=== PATIENT | female | born 1940 | race Caucasian/White ===

== ENCOUNTER → 2017-10-29 13:12 | Outpatient (CLI) | payer OTHER, SELFPAY ==
--- NOTE | 2017-10-29 14:01 | DI.CT.S_ITS ---
PROCEDURE: CT UE LT WO CON INDICATIONS: PRIMARY OSTEOARTHRITIS LEFT SHOULDER TECHNIQUE: Noncontrast 1-1.5 mm thick sections acquired from the acromioclavicular joint to the inferior scapula, with coronal and sagittal reformatting. COMPARISON: [facility], CR, XR SHOULDER 2+ VIEWS LEFT, 03/15/2017, 11:17. FINDINGS: Image quality: Diagnostic. Bones: There is no acute fracture, dislocation, or suspicious osseous lesion involving the osseous structures of the left shoulder. However, there are severe degenerative changes of the left glenohumeral joint with prominent joint space narrowing, bony remodeling, degenerative cystic change, developing marginal osteophytes, and subchondral sclerosis. There are mild to moderate degenerative changes of the left acromioclavicular joint. The remainder of the imaged osseous structures of the left chest are otherwise unremarkable and age-appropriate Soft tissues: Evaluation of the soft tissues of the left shoulder is difficult without intra-articular contrast. There appears to be a prominent left glenohumeral joint effusion. No significant muscle atrophy is appreciated involving the rotator cuff muscles. There is no significant axillary lymphadenopathy. The imaged soft tissues of the chest are age-appropriate. The heart may be mildly enlarged. There are areas of atelectasis within the posterior lungs. No obvious masses are appreciated. IMPRESSION: 1. Severe degenerative changes of the left glenohumeral joint with an associated joint effusion. 2. Mild to moderate degenerative changes of the left acromioclavicular joint. 3. No significant atrophy of the rotator cuff muscles. Dictated by: Wilber Gambino M.D. on 10/29/2017 at 16:22 Approved by: Wilber Gambino M.D. on 10/29/2017 at 16:26
== END ==
PROVIDERS: PCP Nurse Practitioner; Visit Provider Orthopaedic Surgery
DX: M19.012 Primary osteoarthritis, left shoulder (principal); M25.412 Effusion, left shoulder
CPT/HCPCS: 73200

== ENCOUNTER → 2017-11-18 12:32 | Outpatient (CLI) | payer OTHER, SELFPAY ==
[2017-11-18 14:07] LABS: Add Manual Diff / Slide Review NO; Basophils Percent Auto 0.6 % (0-2); Eosinophils Percent Auto 1.2 % (2-4); Hematocrit 42.1 % (36-46); Lymphocytes Percent Auto 23.9 % (25-40); Mean Corpuscular HGB Conc 33.3 % (30-36); Mean Corpuscular Hemoglobin 30.9 PG (26-34); Mean Corpuscular Volume 92.6 fL (80-100); Monocytes Percent Auto 9.2 % (3-14); Neutrophils Absolute Auto 4100 /uL (3000-5900); Neutrophils Percent Auto 65.1 % (50-75); Platelet Count 236 X10^3/uL (150-400); Red Blood Cell Count 4.55 X10^6/uL (4.0-5.2); Red Cell Distribution Width 13.5 % (11.6-14.8); White Blood Cell Count 6.2 X10^3/uL (4.5-11.0)
[2017-11-18 14:09] LABS: Hemoglobin A1C% w Est Avg Glu 5.2 % (4.0-6.0)
[2017-11-18 14:29] LABS: BUN Creatinine Ratio 22.9 (6-22); Blood Urea Nitrogen 16 mg/dL (7-17); Calcium 9.7 mg/dL (8.4-10.2); Carbon Dioxide 29 mmol/L (22-32); Chloride 102 mmol/L (98-107); Estimated Glomerular Filt Rate > 60.0 mL/min (>60); Glucose 109 mg/dL (80-110); HEMOLYSIS < 15 (0-50); Potassium 4.2 mmol/L (3.4-5.1); Sodium 141 mmol/L (137-145)
[2017-11-18 14:37] LABS: Transferrin 264 mg/dL (206-381)
== END ==
PROVIDERS: PCP Nurse Practitioner; Visit Provider Orthopaedic Surgery
DX: M25.512 Pain in left shoulder (principal); Z01.812 Encounter for preprocedural laboratory examination; D64.9 Anemia, unspecified; R73.9 Hyperglycemia, unspecified; N39.0 Urinary tract infection, site not specified; Z01.818 Encounter for other preprocedural examination; R73.09 Other abnormal glucose; R82.79 Other abnormal findings on microbiological examination of urine
CPT/HCPCS: 36415; 80048; 83036; 84466; 85025; 87077; 87086; 87147; 93005; 93010

== ENCOUNTER 2018-01-17 06:13 | Inpatient (IN) | payer OTHER, SELFPAY ==
[2018-01-03 10:33] VITALS: BMI 33.1
[2018-01-17] VITALS (16 sets, daily range): BP systolic 103–138; BP diastolic 48–96; PULSE 71–82; RESP 14–24; TEMP 36.3–37.1; O2SAT 90–97; BMI 33.1
--- NOTE | 2018-01-17 | DI.RAD.S_ITS ---
PROCEDURE: XR SHOULDER LT 1V INDICATIONS: post op total shoulder TECHNIQUE: Single frontal view of the shoulder were acquired. COMPARISON: None. FINDINGS: Bones: No fractures or dislocations. There is expected postsurgical alignment after left total shoulder arthroplasty. A surgical drain overlies the operative bed. No suspicious bony lesions. Visualized ribs appear intact. Soft tissues: No suspicious soft tissue calcifications. IMPRESSION: Normal postoperative alignment after left total shoulder arthroplasty. Dictated by: Jaspreet Elizabeth M.D. on 01/17/2018 at 11:00 Approved by: Jaspreet Elizabeth M.D. on 01/17/2018 at 11:00
[2018-01-17] MEDS: LACTATED RINGERS 1,000 ML 42 ML IV ×2 (07:00→10:17)
--- NOTE | 2018-01-17 07:43 | PM.PREOP ---
Pre-operative Note Interval Note Pre-op Check: Yes History & Physical Reviewed by Physician and Yes Exam Performed Changes: No
--- NOTE | 2018-01-17 07:43 | PM.OP.1 ---
Operative Date/Time/Diagnoses Date of procedure: 01/17/18 Time of procedure: 09:40 Pre-op diagnosis: Left shoulder osteoarthritis Post-op diagnosis: same Procedure & Clinicians Procedure: Left total shoulder replacement Same procedure as scheduled: Yes Indications: The patient has had progressively worsening left shoulder pain with radiographic changes consistent with arthritis. Non-operative management has failed and the patient has requested total shoulder replacement. The risks, benefits and alternatives to surgery were discussed with the patient prior to proceeding. Risks discussed included, but were not limited to, failure to relieve pain, stiffness, infection, nerve damage, deep venous thrombosis, pulmonary embolism, stroke, coma, heart attack, permanent paralysis and , as well as the potential need for eventual revision of the prosthetic. Surgeon: Anderson Bellamy Web Content Editor: Shawna Toledo Click Yes if Unassisted: No Anesthesia Type: General, Peripheral nerve block and Local Operative Notes Findings: Severe shoulder osteoarthritis with large osteophytes and flattening of the humeral head. Closure Type: primary Specimen(s): none sent Implants & Drains: Implants used in this procedure were manufactured by the [employer] and included an Altivate short stem total shoulder system with a size 12 short stem, a 42 mm all polyethylene pegged E +glenoid, a neutral humeral neck and a 42 x 18 mm neutral humeral head. Applied: drain(s) and implant(s) Estimated Blood Loss (mL): 150 Blood products transfused: none Procedure in detail: The patient was seen in the pre-operative area, where the patient identified the left shoulder as the operative site and this was marked with my initials. The patient received pre-operative antibiotics, underwent an interscalene block, and was taken to the operating room and placed on the operative table in the supine position. After satisfactory anesthesia, a full ?time out? was performed. The patient was repositioned in the ?beach chair? position using a dedicated positioner. All pressure points were well padded, and the knees were slightly bent to prevent tension on the sciatic nerves. The left arm was prepared from the fingers to the base of the neck with ChloroPrep in the usual fashion and draped through sterile drapes. An approximately 15 cm incision was created, starting at the clavicle above the coracoid process and extended towards the deltoid insertion. The deltopectoral interval was used to access the shoulder. The cephalic vein was taken medially. A self retaining retractor was placed. The upper centimeter of the pectoralis major tendon was released. The ?three sisters? were identified and cauterized. The axillary nerve was palpated and protected throughout the case. The biceps was released from its groove and tenodesed over the top of the pectoralis major tendon. The subscapularis was released from the lesser tuberosity with a subscapularis peel and tagged for later repair. The shoulder was dislocated and a cutting guide was used for the proximal humeral osteotomy in 30 degrees of retroversion. A starter Reamer was used followed by the cylindrical reamers. This continued in larger sizes in till cortical bite was achieved. Sequential broaching was then performed until a line to line fit with the Reamer occurred. A proximal humeral protector was then placed. We then removed the self-retaining retractor and placed retractors to access the glenoid. The subscapularis was released with a ?360 degree release? with care being taken to protect the axillary nerve with the inferior portion of this procedure. The remnant of labrum and biceps stump were removed. The appropriate size reamer was chosen with the glenoid sizer, and the guide pin placed. The glenoid was appropriately reamed. The guide for the peripheral holes was used and the center hole enlarged. The trial glenoid was placed with good stability. We then cemented the final implant into place after irrigating the peg holes and drying them with thrombin-soaked Gelfoam. We returned our attention to the humerus, a trial humeral head was applied and a trial reduction performed. Stability was checked with 1/3 posterior translation with spontaneous reduction, 45? external rotation at the side with the subscapularis held on the repaired position and 70? of internal rotation in abduction. This was felt to be satisfactory and the appropriate implants were opened. Five holes were drilled along the humeral osteotomy and #2 TiCron sutures placed for eventual subscapularis repair. The humeral prosthetic was impacted into the humerus. The humeral head was applied when the stem was still slightly proud and impacted to both seat the head and fully seat the stem. The joint was relocated one final time. The joint was irrigated and the subscapularis repaired to the previously placed sutures using Red-Cosmo sutures. The top of the subscapularis was closed to the leading edge of the supraspinatus with a figure of 8 #2 TiCron to close the rotator interval. A deep drain was placed and brought out supero-laterally. The deltopectoral interval was closed with interrupted 0 Vicryl. The subcutaneous layer was closed with 3-0 Vicryl, and the skin with a running 3-0 V-Lock suture and SteriStrips. An Aquacel Ag dressing was applied, the patient?s arm was placed in a sling, and the patient was taken to recovery having tolerated the procedure well. Complications: none Condition: stable Disposition: PACU Plan for aftercare: The patient will be maintained on a standard total shoulder replacement protocol with passive range of motion limited to 90 degrees forward flexion, 0 degrees external rotation at the side, 0 degrees abduction and internal rotation to the body. The patient will receive aspirin and sequential compression devices for DVT prophylaxis. The patient will be discharged home when safe for the home environment, likely tomorrow.
[2018-01-17] MEDS: fentaNYL 100 MCG/2 ML INJ 50 MCG IV ×2 (07:45→07:50)
[2018-01-17] MEDS: MIDAZOLAM 2 MG/2 ML VIAL 1 MG IV ×2 (07:45→07:50)
[2018-01-17] MEDS: CEFAZOLIN 2 GM/100 ML FROZ.PIGGY IV ×3 (08:00→23:56)
--- NOTE | 2018-01-17 08:14 | PC.NURSE ---
Day shift: Pt is not on this AC unit at this time. Charting to be done when Pt on unit.
--- NOTE | 2018-01-17 08:29 | SUR.OPER ---
Beach chair with Araceli/Clarice shoulder positioner. Lower body on padded OR bed. Head in foam padded head cradle, secured with straps. Non-operative arm secured <90 degrees abduction. Pillow under knees. Safety belt at thigh. Cloth tape over blanket over lower legs.
[2018-01-17] MEDS: BUPIVACAINE 0.5% W/ EPI (PF) VIAL 30 ML INJ (08:43)
[2018-01-17] MEDS: TRANEXAMIC ACID 1,000 MG VIAL 2000 MG INJ (08:44)
[2018-01-17] MEDS: THROMBIN (BOVINE) 5,000 UNIT VIAL 5000 UNIT TOP (08:49)
--- NOTE | 2018-01-17 11:09 | PC.NURSE ---
Day shift: Arrived on unit at approx 1100. A&Ox3. Denies any pain or nausea. VS WNL. 2L NC 93%. 4x4 dressing w/ ABD is CDI. Sling/immobilizer in place. No sensation present LUE but good cap refill and radial pulse present. Oriented to room and call light. Call light in reach. Bed alarm is on.
--- NOTE | 2018-01-17 11:14 | SUR.PHASEI ---
Pt transferred to room 216 via bed with all belongings;clothing and CPAP machine. Report given to DANIELLA Mo. Chely at bedside upon pt's arrival to room 216. Verified that pt's dressing to left shoulder was clean, dry, and intact. Hemovac to compression suction. Pt's vital signs stable.
[2018-01-17] MEDS: LACTATED RINGERS 1,000 ML 125 ML IV (11:30)
[2018-01-17] MEDS: INFLUENZA VACCINE 0.5 ML SYRINGE IM (14:14)
--- NOTE | 2018-01-17 14:46 | PT.IIE ---
Addendum entered and electronically signed by Maria Del Carmen Balderas, PT 01/17/18 14:47: I directly supervised and guided this session. Jose Balderas DPKristal Original Note: Current Diagnoses Primary osteoarthritis, left shoulder (01/17/18) Surgery Performed Operation Date: 01/17/18 07:45 Actual Procedures p Total Shoulder Arthroplasty(Left) - Anderson Bellamy MD Surgical History (Last Updated 01/03/18 @ 12:28 by Camelia Friedman RN) H/O: (Acute) History of bilateral tubal ligation (Acute) Hx of arthroscopic knee surgery (Acute ~2004) Hx of dilation and curettage (Acute) S/P bilateral unicompartmental knee replacement (Acute) Medical History (Last Updated 01/03/18 @ 12:28 by Camelia Friedman RN) Arthritis (Acute) Arthritis of left shoulder region (Acute) Asthma (Acute) Bruises easily (Acute) Central sleep apnea syndrome (Acute) Cough (Acute) Depression (Acute) Diarrhea (Acute) Fatigue (Acute) Hypothyroidism (Acute) Insomnia (Acute) Irritable bowel syndrome (Acute) Low back pain (Acute) Lymphocytic colitis (Acute ~2007) Major depressive episode (Acute) Neuropathy (Acute) Numbness and tingling of both feet (Acute) Osteoarthritis (Acute) Pneumonia (Acute) Skin cancer (Acute) Squamous cell cancer of skin of left cheek (Acute ~07/2016) Trigger finger, right little finger (Acute) Physical Therapy Inpatient Evaluation/Re-Eval M1 PT/OT-IP Prior Functional Status Start: 01/17/18 13:18 Freq: NEEDED Status: Active Protocol: Document 01/17/18 14:45 (Rec: 01/17/18 14:45 [email or web address]) Medical Review Prior Functional Status Medical History Reviewed Yes Communication Pt able to make needs known. Prior Functional Level (Other details) Pt states she was previously independent with all mobilities, using a single point cane or FWW for in-home and community ambulation. She reports going/up down stairs using rail and UE support. She states she has single point canes avaliable on every floor. She reports multiple ground level falls in the last year including 2 falls within the same week recently (2 wks . ago) Social History Household Members none Living Arrangements House Number of Floors (Floors) 3 or More Floors Number of Stairs To Enter/Railing? 20 steps to enter home with rail on R side when ascending. Home Environment Standard Height Toilet Walk in Shower Tub/Shower Home Equipment Front Wheel Walker Straight Cane Raised Toilet Seat w/Armrests Grab Bars Near Toilet Grab Bars In Shower Employment Status Retired Additional Social History Comment Pt states she has family but they are busy and unavaliable to assist her in any way. 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 M2 PT-IP Current Condition Start: 01/17/18 13:18 Freq: NEEDED Status: Active Protocol: Document 01/17/18 14:45 (Rec: 01/17/18 14:45 [email or web address]) Physical Therapy Current Condition Current Condition Evaluation Date 01/17/18 Treatment Diagnosis L shoulder arthroplasty; History of falls Onset Date 01/17/18 Precautions Shoulder Precautions Sling PROM Internal Rotation to Body No External Rotation No Abduction Forward Flexion to 90 degrees Pendulums Weight Bearing Status Weight Bearing Status Non-Weight Bearing M3 PT-IP Subjective Start: 01/17/18 13:18 Freq: NEEDED Status: Active Protocol: Document 01/17/18 13:29 (Rec: 01/17/18 14:38 [email or web address]) Subjective Physical Therapy Visit Type Type Initial Evaluation Visit Start Time 12:40 Visit Stop Time 03:22 Total Visit Minutes 42 Number of PROGRAM ADVISOR Visits 0 Physical Therapy Visit Comments Patient Comments Pt states shoulder is still feeling numb. She is agreeable to ambulating hallway today and working with PT. Therapy Pain Assessment Pain When Pain Assessed At Rest Pain Present Pain Present Denied Pain M4 PT-IP Mobility and Gait Start: 01/17/18 13:18 Freq: NEEDED Status: Active Protocol: Document 01/17/18 13:29 (Rec: 01/17/18 14:38 [email or web address]) PT-Bed Mobility Assessment Supine to Sit Supine to Sit Standby Assistance Head of Bed Elevated Bedrails Scooting Scooting to Edge of Bed Independent PT-Transfer Assessment Sit to and From Stand Sit to and from Stand Standby Assistance Equipment Transfer Assistive Device Straight Cane Comments Mobility Comments Pt performs sit <> stand using R UE support, reaching back to the bed and recliner without cuing needed. When sit <> stand from the toilet, she requires R UE support. Gait Assessment Gait Gait Assistance Required: Standby Assistance Distance (Feet) 70 Able to Maintain Weight Bearing Status Yes During Gait Assistive Devices Assistive Device Straight Cane Gait Deviations General Gait Pattern Decreased Stride Length Decreased Feet Clearance Factors Limiting Gait Function Factors Limiting Gait Function Decreased Activity Tolerance Decreased Strength Poor Balance Poor Safety Awareness Comments Gait Comments Pt displays significant variability in step width during gait. She fails to consistently advance single point cane with LLE, often dragging the cane behind her. However, she was able to amb 70 ft SBA down hallway without LOB, maintaining a conversation. Blood pressure remains WNL with all activities this session. PT-Balance Assessment Sitting Balance and Reactions Static Sitting Balance Ability Good Dynamic Sitting Balance Ability Fair Standing Balance and Reactions Static Standing Balance Ability Fair Dynamic Standing Balance Ability Fair Device Used SPC M5 PT-IP Objective Assessments Start: 01/17/18 13:18 Freq: NEEDED Status: Active Protocol: Document 01/17/18 13:29 (Rec: 01/17/18 14:38 [email or web address]) Orientation Orientation/Cognition Level of Alertness Alert Orientation Name Age Place Situation Language Function Ability No Deficits Noted Safety Awareness Decreased Safety Awareness Memory Description No Deficits Noted Gross Range of Motion Upper Extremity ROM Assessment Left Impaired Lower Extremity ROM Assessment Within Functional Limits Sensation Assessment Comments Sensation Comments LUE still completely numb post surgery per patient report. Pt states she lack sensation in B feet. M6 PT-IP Treatment Start: 01/17/18 13:18 Freq: NEEDED Status: Active Protocol: Document 01/17/18 13:29 (Rec: 01/17/18 14:38 [email or web address]) Physical Therapy Treatment Education Education Provided Safety M7 PT-IP Assessment and Plan Start: 01/17/18 13:18 Freq: NEEDED Status: Active Protocol: Document 01/17/18 13:29 (Rec: 01/17/18 14:38 [email or web address]) PT Summary Assessment and Plan Potential Rehabilitation Potential Good Status of Condition at Evaluation Stable Summary Impairments ROM Strength Balance Coordination Sensation Transfers Gait Activity Tolerance Progress Towards Goals Progressing Toward Goals Assessment Summary Pt s/p L shoulder arthroplasty . Today she demonstrates moderate to high risk for falls evidenced by decreased gait speed, decreased foot clearance and significant variability in step width during ambulation. She also demonstrates poor understanding of cane use and this is her primary assistive device reported for ambulation in home and community. At this time, pt functional status demonstrates need for discharge to SNF as patient is at risk for falls and her home environment has multiple floors/stairs required to access. She does not have any family avaliable to help care for her at home. Pt safety would also benefit significantly from daily skilled intervention at SNF to improve balance, coordination during gait and reduce her risk for falls. Goals Bed Mobility Goal Independent Transfer Goal Independent Gait Goal Independent Gait Distance 300 Other Goals 1. Pt will ascend/descent 20 steps using R rail independently and safely needed for access to home. 2. Pt gait speed will improve to 1m/s to demonstrate decreased risk for falls and improved functional status needed for safe discharge to home alone. Days to Meet Goals 5 Frequency of Treatment Frequency Of Treatment Twice a Day Treatment Plan Physical Therapy Treatment Plan Transfer Training Gait Training Therapeutic Exercise Balance Retraining Post Op Education Hot or Cold Pack Neuromuscular Re-ed Coordination Retraining Other Recommendations and Next Treatment Focus on education and Focus practice of safe use of cane during ambulation. Progress to stair and balance re- training. Recommendations To Nursing Amount of Assist Needed 1 Person Assist Discharge Recommendations PT Discharge Recommendations SNF Rehab Other Discharge Recommendations If the pt were to discharge to home today, she would require 24/7 stand by assistance as she is at risk for falls. HH would also be needed for balance and safety training. Equipment Needed for Home Before Another railing (she only has Discharge R side rail)
[2018-01-17] MEDS: ACETAMINOPHEN 325 MG TABLET 975 MG PO ×2 (16:28→20:25)
--- NOTE | 2018-01-17 16:57 | PC.NURSE ---
Addendum entered by Mary Lake R.N. 01/17/18 22:23: Pt resting at intervals throughout evening.. Denies discomfort. CMS to finger intact Sling remains in place. IV fluids infusing as per orders w/o incidence. Stable post op course. Call light w/in reach, bed alarm on for pt safety. Continue w/plan of care. Original Note: Pt awake, visiting with family. Denies discomfort at this time. CMS to left arm/hand intact. IV fluids infusing via pump as per order w/o incidence. Stable post op course. Call light w/in reach.
[2018-01-17] MEDS: ASPIRIN EC 81 MG TABLET PO (20:25)
[2018-01-17] MEDS: TRAZODONE 100 MG TABLET PO (21:51)
[2018-01-18] VITALS (12 sets, daily range): BP systolic 118–146; BP diastolic 52–68; PULSE 75–81; RESP 12–20; TEMP 36.1–37.4; O2SAT 88–96
[2018-01-18] MEDS: OXYCODONE IR 5 MG TABLET PO ×4 (00:10→13:33)
[2018-01-18] MEDS: LEVOTHYROXINE 112 MCG TABLET PO (05:56)
[2018-01-18 05:57] LABS: Hematocrit 36.4 % (36-46); Hemoglobin 12.2 g/dL (12.0-16.0); Mean Corpuscular HGB Conc 33.6 % (30-36); Mean Corpuscular Hemoglobin 31.4 PG (26-34); Mean Corpuscular Volume 93.4 fL (80-100); Platelet Count 170 X10^3/uL (150-400); Red Blood Cell Count 3.89 X10^6/uL (4.0-5.2); Red Cell Distribution Width 12.9 % (11.6-14.8); White Blood Cell Count 6.1 X10^3/uL (4.5-11.0)
[2018-01-18] MEDS: HYDROMORPHONE 1 MG INJ 0.5 MG IV (08:35)
[2018-01-18] MEDS: SODIUM CHLORIDE 0.9% FLUSH 10 ML IV ×2 (08:36→20:07)
--- NOTE | 2018-01-18 09:19 | P.DS_ITS ---
History of Present Illness Date Patient Seen: 01/18/18 Time Patient Seen: 09:11 Chief complaint: total shoulder arthroplasty L [id number] Narrative: Patient's history of left shoulder osteoarthritis. Brought to hospital on 01/17/2018 for left total shoulder arthroplasty and rotator cuff repair by Dr. Bellamy. Discharge Providers Date of admission: 01/17/18 06:13 Primary care physician: CELINA Anthony Consults: 01/17/18 11:07 Consult to Discharge Planning Routine Comment: Consult to Physical Therapy Evaluate & Treat Comment: Pendulums, PROM 90 FF, 0 ER, 0 Abd, IR to body Physician Instructions: Evaluate and Treat Consult to Respiratory Therapy Evaluate & Treat Comment: Physician Instructions: Evaluate and treat 01/17/18 18:40 Consult to Strategic Planning Director Routine Comment: Family would like to talk. Pt lives by self w/stai 01/18/18 08:44 Consult to Occupational Therapy Evaluate & Treat Comment: Physician Instructions: Evaluate and treat Discharge provider: Jeramie Guo PA-C Discharge Date: 01/18/18 Summary Discharge Diagnosis: Status post left total shoulder arthroplasty and rotator cuff repair by Dr. Bellamy Hospital Course: Patient remained stable postoperatively. Used occasional hydromorphone IV and oxycodone p.o. for pain. She appeared stable on postop day 1. She did need PT/OT prior to discharge. She does live in a 3 story farm house and lives alone. Status at Discharge Overall status at discharge: other (Patient was stable with the left arm in sling.) Time Spent with Patient Less than 30 minutes Exam Vital Signs (past 8 hours): - 01/18/18 06:18 01/18/18 08:51 Temperature 98.7 F Pulse Rate 77 Respiratory Rate 20 Blood Pressure 137/53 L Pulse Oximetry 92 94 Oxygen Delivery Method Room Air Oxygen Flow Rate 1 Narrative Exam Narrative: Alert, oriented in no acute distress resting in bed. Left arm. Arm in sling. Good pulses and sensation to hand. Good strength on thumb extension and finger apposition and slat basket top maker. Good strength to forearm flexion- extension and upper arm AB duction. A bulky dressing in place to left shoulder. Hemovac in place with minimal drainage. Objective Labs Result Diagrams: 01/18/18 05:37 Labs: Laboratory Results - last 24 hr 01/18/18 05:37 WBC 6.1 RBC 3.89 L Hgb 12.2 Hct 36.4 MCV 93.4 MCH 31.4 MCHC 33.6 RDW 12.9 Plt Count 170 Discharge Plan Discharge Plan Patient Disposition: Home Discharge comment: Discharged to home. Will continue with a left arm sling for comfort and stabilization of left arm. Discharge Med Rec/Prescriptions Prescriptions: New aspirin 81 mg Tablet,Delayed Release (Dr/Ec) 81 mg PO BID Qty: 60 RF: 0 oxycodone 10 mg Tablet 10 mg PO Q3HR PRN (Reason: Pain, Severe (7-10)) Qty: 40 RF: 0 Continue acetaminophen 325 mg Tablet 325 mg PO TID PRN (Reason: pain) RF: 0 trazodone 100 mg Tablet 100 mg PO BEDTIME RF: 0 omeprazole 20 mg Capsule,Delayed Release(Dr/Ec) 20 mg PO DAILY RF: 0 albuterol sulfate 90 mcg/actuation Hfa Aerosol Inhaler 2 puff INHALATION Q4-6H PRN (Reason: Asthma) RF: 0 levothyroxine 112 mcg Tablet 112 mcg PO DAILY RF: 0 cholecalciferol (vitamin D3) 400 unit Capsule 1 dose PO DIRECTED RF: 0 bupropion HCl 300 mg Tablet Extended Release 24 Hr 300 mg PO DAILY RF: 0 duloxetine 60 mg Capsule,Delayed Release(Dr/Ec) 60 mg PO BEDTIME RF: 0 calcium carbonate-vitamin D3 600 mg(1,500mg) -400 unit Tablet 1 tab PO DAILY RF: 0 krill oil 500 mg Capsule 1 dose PO DIRECTED RF: 0 turmeric root extract 500 mg Capsule 500 mg PO DAILY RF: 0 Osteo Bi-Flex 1 dose PO DIRECTED RF: 0 cyanocobalamin (vitamin B-12) 1 dose PO DIRECTED RF: 0 Provider Discharge Instructions Diet: Diet as Tolerated Activity: No lifting or carrying with left arm. His left arm sling for comfort and stabilization of arm. Cold/Heat Therapy: Mahin back to left shoulder as needed. Skin/Wound/Dressing Care Report to your healthcare provider any signs of infection, such as:: chills, fever, night sweats, increased pain and unusual drainage Visit Report/Discharge Packet Instructions: DI for Shoulder Replacement Discharge Data Primary Care Provider: Elizabeth Schulte Attending Provider: Anderson Bellamy Admit Date/Time: 01/17/18 06:13 Quality VTE Deep Vein Thrombosis/Pulmonary Embolism Present on Admission: No
[2018-01-18] MEDS: PANTOPRAZOLE 20 MG TABLET PO (10:58)
[2018-01-18] MEDS: ACETAMINOPHEN 325 MG TABLET 975 MG PO ×3 (10:59→20:06)
[2018-01-18] MEDS: ASPIRIN EC 81 MG TABLET PO ×2 (10:59→20:08)
[2018-01-18] MEDS: POLYETHYLENE GLYCOL 3350 17 GM POWD.PACK PO (10:59)
[2018-01-18] MEDS: DOCUSATE 100 MG CAPSULE PO (10:59)
[2018-01-18] MEDS: buPROPion XL 150 MG TAB 300 MG PO (10:59)
--- NOTE | 2018-01-18 11:37 | PT.IPTN ---
Addendum entered and electronically signed by Maria Del Carmen Balderas, PT 01/18/18 11:37: I directly supervised and guided this session. Jose Balderas, DPKristal Original Note: Current Diagnoses Primary osteoarthritis, left shoulder (01/17/18) Surgery Performed Operation Date: 01/17/18 07:45 Actual Procedures p Total Shoulder Arthroplasty(Left) - Anderson Bellamy MD Physical Therapy Treatment Note M2 PT-IP Current Condition Start: 01/17/18 13:18 Freq: NEEDED Status: Active Protocol: Document 01/17/18 14:45 (Rec: 01/17/18 14:45 [id number]) Physical Therapy Current Condition Current Condition Evaluation Date 01/17/18 Treatment Diagnosis L shoulder arthroplasty; History of falls Onset Date 01/17/18 Precautions Shoulder Precautions Sling PROM Internal Rotation to Body No External Rotation No Abduction Forward Flexion to 90 degrees Pendulums Weight Bearing Status Weight Bearing Status Non-Weight Bearing M3 PT-IP Subjective Start: 01/17/18 13:18 Freq: NEEDED Status: Active Protocol: Document 01/18/18 10:20 (Rec: 01/18/18 11:27 [id number]) Subjective Physical Therapy Visit Type Type Treatment Note Visit Start Time 10:20 Visit Stop Time 10:58 Number of ROPER OPERATOR Visits 0 Physical Therapy Visit Comments Patient Comments Pt states feeling better today . Agrees to PT including beginning stair training today . Therapy Pain Assessment Pain When Pain Assessed At Rest Pain Present Pain Present Pain Reported Location Left Shoulder Intensity 8 M4 PT-IP Mobility and Gait Start: 01/17/18 13:18 Freq: NEEDED Status: Active Protocol: Document 01/18/18 10:20 (Rec: 01/18/18 11:27 [id number]) PT-Bed Mobility Assessment Supine to Sit Supine to Sit Standby Assistance Sit to Supine Sit to Supine Standby Assistance Scooting Scooting to Edge of Bed Standby Assistance Scooting Up and Down in Bed Standby Assistance PT-Transfer Assessment Sit to and From Stand Sit to and from Stand Standby Assistance Equipment Transfer Assistive Device Gait Belt Tripod Cane/Hurry Cane Orthotic/Prosthetic Devices or Brace: No Comments Mobility Comments No cues needed for hand placement this session during sit <> stand. Oxygen 94% after warm up ankle pumps and heel slides in bed. Gait Assessment Gait Gait Assistance Required: Standby Assistance Contact Guard Assist Distance (Feet) 150 Able to Maintain Weight Bearing Status Yes During Gait Assistive Devices Assistive Device Gait Belt Tripod Cane/Hurry Cane Orthotic/Prosthetic Devices or Brace: No Gait Deviations General Gait Pattern Antalgic Decreased Stride Length Decreased Feet Clearance Comments Gait Comments pt continues to need mod cues to advance cane with RLE as she tends to drag it behind her and not offload the LLE. Gait speed and distance improved today and no LOB. Ambulated ~100ft towards stairs on 1L 02 and O2 sat decreased to 88%. She reported no symptoms of dizziness and 02 recovered to 92% after 3 mins standing rest prior to continuing with stair training. 02 remained > 90% throughout the rest of the session. Stair Climbing Assessment Evaluation Level of Assist On Stairs Contact Guard Assistance Devices Stair Climbing Assistive Devices Tripod Cane/Hurry Cane Technique/Endurance Stair Climbing Direction Descend Stair Climbing Technique Step to Step Number of Steps Climbed 6 Query Text: Comments Stair Climbing Comments She descends backwards on stairs to avoid weight bearing on post op shoulder. PT-Balance Assessment Sitting Balance and Reactions Static Sitting Balance Ability Good Dynamic Sitting Balance Ability Fair Standing Balance and Reactions Static Standing Balance Ability Fair Dynamic Standing Balance Ability Fair M5 PT-IP Objective Assessments Start: 01/17/18 13:18 Freq: NEEDED Status: Active Protocol: Document 01/17/18 13:29 (Rec: 01/17/18 14:38 [id number]) Orientation Orientation/Cognition Level of Alertness Alert Orientation Name Age Place Situation Language Function Ability No Deficits Noted Safety Awareness Decreased Safety Awareness Memory Description No Deficits Noted Gross Range of Motion Upper Extremity ROM Assessment Left Impaired Lower Extremity ROM Assessment Within Functional Limits Sensation Assessment Comments Sensation Comments LUE still completely numb post surgery per patient report. Pt states she lack sensation in B feet. M6 PT-IP Treatment Start: 01/17/18 13:18 Freq: NEEDED Status: Active Protocol: Document 01/17/18 13:29 (Rec: 01/17/18 14:38 [email or web address]) Physical Therapy Treatment Education Education Provided Safety M7 PT-IP Assessment and Plan Start: 01/17/18 13:18 Freq: NEEDED Status: Active Protocol: Document 01/18/18 10:20 (Rec: 01/18/18 11:27 [id number]) PT Summary Assessment and Plan Potential Rehabilitation Potential Good Summary Progress Towards Goals Slow Progress due to Medical Issues Slow Progress due to Activity Tolerance Assessment Summary Pt s/p L TSA and difficulty with coordination and dynamic balance during gait. Gait speed and ambulation distance using tripod cane and SBA increased today and she was able to up/down 6 steps with CGA and use of R rail. She must descend backwards to avoid WB into operative L shoulder. Continue to recommend d/c to SNF due to the patients home environment including multiple stairs to enter home and lack of available 24/7 assist to care for post op shoulder and risk of falls. Desaturation of 02 to 88% on 1 L 02 is also suggests need for additional recovery time. SNF environment would also be highly beneficial for the patient to improve balance deficits, improve gait speed and decrease risk for falls. Frequency of Treatment Frequency Of Treatment Twice a Day Treatment Plan Physical Therapy Treatment Plan Bed Mobility Training Transfer Training Gait Training Therapeutic Exercise Balance Retraining Post Op Education Hot or Cold Pack Neuromuscular Re-ed Coordination Retraining Other Recommendations and Next Treatment Continue gait and stair Focus training (recommend CGA on stairs). Include some dynamic balance activities. Recommendations To Nursing Amount of Assist Needed 1 Person Assist Discharge Recommendations PT Discharge Recommendations SNF Rehab Other Discharge Recommendations If the patient were to go home at d/c she would need 24/7 avaliable assist for safe guarding on stairs to enter home. HH also recommended for post-op care and to address impairments noted in gait coordination and balance.
--- NOTE | 2018-01-18 12:05 | OT.IP.EVAL ---
Current Diagnoses Primary osteoarthritis, left shoulder (01/17/18) Surgery Performed Operation Date: 01/17/18 07:45 Actual Procedures p Total Shoulder Arthroplasty(Left) - Anderson Bellamy MD Past Medical History (Last Updated 01/18/18 @ 09:47 by Dulce De Jesus RN) Crohn's disease (Acute) Arthritis (Acute) Arthritis of left shoulder region (Acute) Asthma (Acute) Bruises easily (Acute) Central sleep apnea syndrome (Acute) Cough (Acute) Depression (Acute) Diarrhea (Acute) Fatigue (Acute) Hypothyroidism (Acute) Insomnia (Acute) Irritable bowel syndrome (Acute) Low back pain (Acute) Lymphocytic colitis (Acute ~2007) Major depressive episode (Acute) Neuropathy (Acute) Numbness and tingling of both feet (Acute) Osteoarthritis (Acute) Pneumonia (Acute) Skin cancer (Acute) Squamous cell cancer of skin of left cheek (Acute ~07/2016) Trigger finger, right little finger (Acute) Surgical History (Last Updated 01/03/18 @ 12:28 by Camelia Friedman RN) H/O: (Acute) History of bilateral tubal ligation (Acute) Hx of arthroscopic knee surgery (Acute ~2004) Hx of dilation and curettage (Acute) S/P bilateral unicompartmental knee replacement (Acute) Occupational Therapy Inpatient Evaluation/Re-Eval M1 PT/OT-IP Prior Functional Status Start: 01/17/18 13:18 Freq: NEEDED Status: Active Protocol: Document 01/18/18 12:08 GILBERT (Rec: 01/18/18 13:59 PJM [id number]) Medical Review Prior Functional Status Medical History Reviewed Yes Diet/Fluid Consistency Regular Communication WNL Mobility and Gait Pt ambulates with cane or FWW with 2 falls in last 2 weeks. See details below. Activities of Daily Living and IADL's Pt was indep with self care, IADLS, driving. Son and daughter live locally but work long hours. They can assist on weekends only. Prior Functional Level (Other details) Pt states she was previously independent with all mobilities, using a single point cane or FWW for in-home and community ambulation. She reports going/up down stairs using rail and UE support. She states she has single point canes available on every floor. She reports multiple ground level falls in the last year including 2 falls within the same week recently (2 wks . ago) Social History Household Members none Living Arrangements House Number of Floors (Floors) 3 or More Floors Number of Stairs To Enter/Railing? 20 steps to enter home with rail on R side when ascending. 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 Son will install grab bars in walk in shower stall and obtain shower seat for pt. M2 OT-IP Current Condition Start: 01/18/18 13:24 Freq: Status: Active Protocol: Document 01/18/18 1208 PJM (Rec: 01/18/18 13:59 [facility] [id number]) Occupational Therapy Current Condition Current Condition Evaluation Date 01/18/18 Treatment Diagnosis decreased self care and functional mobility S/P L TSA Diagnosis Onset Date 01/17/18 Post Operative Precautions Shoulder Precautions Sling PROM Internal Rotation to Body No External Rotation No Abduction Forward Flexion to 90 degrees Pendulums Other Precautions sling on at all times except when dressing and showering; began education with pt,son re : donning and doffing sling and pendulum exercises for LUE Weight Bearing Status Weight Bearing Status Non-Weight Bearing Allowed Weight Bearing Amount (enter % NWB LUE or #) (%) M3 OT- IP Subjective and Pain Start: 01/18/18 13:24 Freq: Status: Active Protocol: Document 01/18/18 1208 PJM (Rec: 01/18/18 13:59 [facility] [id number]) OT- Subjective Occupational Therapy Visit Type Type Initial Evaluation Visit Start Time 11:05 Visit Stop Time 12:08 Total Visit Minutes 63 Notes Pt's son here for education this session. Occupational Therapy Visit Comments Patient/Caregiver Goals to have less pain in shoulder and to return to indep living alone at home OT Pain Assessment Pain When Pain Assessed After Treatment Pain Present Pain Present Pain Reported Location Left Shoulder Intensity 6 Scale Used Numeric (1 - 10) Description Aching Acute Pain Behaviors Facial Grimacing Guarding Management Techniques Apply Cold Distraction Re-positioning Timing of Activity with Medications M4 OT- IP ADL's Start: 01/18/18 13:24 Freq: Status: Active Protocol: Document 01/18/18 1208 [facility] (Rec: 01/18/18 13:59 [facility] [id number]) OT FIV-Dqev-Tiktpaw General Evaluation Diet Level for Self-Feeding general Self-Feeding Ability Independent Areas Needing Assistance Cutting Food Opening Containers Comments OT Self-Feeding Comments Pt is independent after meal tray set up using dominant R hand OT ADL-Grooming General Evaluation Grooming Ability Standby Assistance Areas Needing Assistance Retrieving/Set-up of Grooming Items Comments OT Grooming Comments seated in chair after set up OT ADL-Oral Care General Eval Areas of Assistance Retrieving/Set-Up of Items Comments Oral Care Comments seated in chair after set up OT ADL-Dressing General Eval Upper Body Dressing Ability Moderate Assistance Lower Body Dressing Ability Moderate Assistance Areas Needing Assistance Retrieving/Set-up of Clothing Managing Zippers/Fasteners Button-Up Shirt/Blouse Underpants/Brief Pants/Shorts Socks Shoes Assistive Devices Dressing Assistive Devices Long Handled Shoe Horn Comments OT Dressing Comments Pt needing max assist with sling and at least mod assist with other dressing due to inability to use LUE. OT ADL-Toileting General Evaluation Toileting Ability Standby Assistance Devices Toileting Assistive Devices Raised Toilet Seat Comments OT Toileting Comments Pt has RTS with siderails at home. OT ADL-Bathing Comments OT Bathing Comments to be assessed; began education re: grab bar installation, shower seat options. Son will install grab bars and get shower seat. M5 OT- IP IADL's Start: 01/18/18 13:24 Freq: Status: Active Protocol: Document 01/18/18 1208 [facility] (Rec: 01/18/18 13:59 [facility] [id number]) OT-Instrumental Activities of Daily Living Deficits IADL Deficits Identified Deficits Home Safety Awareness Awareness of Need for Assistance at Home Good Awareness Ability to Problem Solve Emergency Able to Problem Solve Situations Medication Management Medication Management No Deficits Identified Money Management Money Management No Deficits Identified Meal Preparation Meal Preparation Caregiver Provides Assist Meal Preparation Comments pt will have paid caregiver to assist with some meal set up; pt plans to microwave meals; family will assist with grocery shopping PRN Radiosonde Specialist Radiosonde Specialist Caregiver Provides Assist Radiosonde Specialist Comments family will assist with cleaning, laundry; neighbors to assist with mail and trash Driving Driving Caregiver Provides Assist Driving Comments pt plans to hire taxi or use caregiver for transport M6 OT- IP Functional Cognition Start: 01/18/18 13:24 Freq: Status: Active Protocol: Document 01/18/18 1208 PJ (Rec: 01/18/18 13:59 [facility] [id number]) Cognitive Factors Limiting Selfcare Function Cognitive Ability Level of Alertness Alert Patient Orientation Name Age Birthday Month Date Year Day of Week Place Situation Attention Span Ability Capable of Focused Attention Capable of Sustained Attention Ability to Follow Commands Able to Follow One Step Commands Memory Description Short Term Impaired Safety Awareness Decreased Ability to Apply Precautions Problem Solving Ability Needs Assist to Identify Solutions Cognitive Comments Cognitive Assessment Comments Pt needs repetition of information re: sling donning and doffing and to problem solve straps. Slightly drowsy from pain meds. OT- Vision and Hearing OT- Hearing Assessment OT- Hearing Assessment WFL OT- Vision Assessment Visual Acuity WFL Glasses All The Time Vision Assessment Comments Pt denies any recent vision changes M7 OT- IP Mobility and Balance Start: 01/18/18 13:24 Freq: Status: Active Protocol: Document 01/18/18 1208 PJ (Rec: 01/18/18 13:59 [facility] [id number]) OT-Transfer Assessment Comments Mobility Comments did not occur, pt seen up in recliner this session; see P.T . notes; pt plans to sleep in recliner on main floor initially OT- Gait Assessment Comments Gait Ability Comments see P.T. notes OT- Balance Assessment Comments Other Balance Tests/Deviations/Treatment see P.T. notes : M8 OT- IP Objective Assessments Start: 01/18/18 13:24 Freq: Status: Active Protocol: Document 01/18/18 1208 PJ (Rec: 01/18/18 13:59 [facility] [id number]) OT Gross Range of Motion Upper Extremity Range of Motion Assessment Left Impaired ROM Impairments RUE AROM WFL for age LUE: shldr NT in sling, elbow, wrist, hand WFL; pt has supination to 10 degrees only, pronation WFL OT Strength Upper Extremity Strength Assessment Left Impaired Comments Strength Comments RUE WFL LUE: shldr NT in sling; distal strength at least 3/5; building insulation installer 4 -/5 OT- Coordination Assessment Comments Coordination Comments RUE WFL LUE in sling and pt able to use hand within sling for light assist OT-Muscle Tone Assessment Muscle Tone WNL Yes OT Sensation Assessment Comments Summary Comments Pt denies deficits in BUE's, detects light touch in L hand (Numbness is almost all gone now). Edema Edema Absent M9 OT- IP Assessment and Plan Start: 01/18/18 13:24 Freq: Status: Active Protocol: Document 01/18/18 1208 PJM (Rec: 01/18/18 13:59 PJM [id number]) OT Summary Assessment and Plan Potential Rehabilitation Potential Good Analytic Complexity at Evaluation Low Summary OT Impairments Pain Range of Motion Strength Balance Coordination Functional Mobility Grooming Dressing Toileting Bathing Toilet Transfers Shower Transfers Assessment Summary Low complexity OT assessment completed with emphasis on self care skills within L TSA precautions. Pt currently has significant performance deficits in dressing, bathing, toileting and has not yet done any grooming standing at sink. Pt also has decreased independence/safety in functional mobility per P.T. notes. Pt normally lives alone. Pt not safe to return home at this time due to above deficits and pt currently on 1L O2 and desatted with mobility today per P.T. Note pt has new CPAP machine which may be difficult to don with one hand.. Will assess this tomorrow. Pt has many stairs both outside and inside home. Currently recommend SNF for further rehab vs home with 24 hr assist for safety with all mobility and self care. When pt returns home recommend HH OT, PT and bath aide. Goals Self-Feeding Goal Independent Grooming Goal Independent Dressing Goal Minimal Assistance Toileting Goal Independent Bathing Goal Minimal Assistance Toilet Transfer Goal Independent Raised Toilet Seat With Rails Shower Transfer Goal Contact Guard Assistance Shower Chair Grab Bars Patient/Caregiver Education Goal Demonstrate Post-Op Precautions Demonstrate Energy Conservation and Pacing Caregiver Independent Assisting Patient OT-Other Goals Grooming to be done standing at sink. Pt to complete LUE pendulum exercises with SBA from written directions. Days to Meet Goals 5 Frequency of Treatment Frequency Of Treatment Once a Day Treatment Plan OT Treatment Plan ADL Training Functional Mobility Therapeutic Exercises Patient/Family Education Discharge Planning Discharge Recommendations OT Discharge Recommendations SNF Rehab Other Discharge Recommendations vs home with 02/11 caregiver assist and HH OT, PT, bath aide Home Equipment Needs grab bars in shower, shower seat
--- NOTE | 2018-01-18 15:58 | CM.DPC ---
Plan: Patient hopes to be able to go to SNF for short stay. First SNF choice is [facility]. Faxed SNF request to attn. [facility] at [place]. If [place] denies SNF second option is home with [facility]. TENTER to f/u in AM on 01-19-18 BRIAN Martinez Discharge Planning/Care Management CM Discharge Assessment Start: 01/18/18 15:44 Freq: Status: Active Protocol: Document 01/18/18 15:45 KJS (Rec: 01/18/18 15:57 KJS [id number]) Discharge Planning Assessment Assigned Broach Trouble Shooter BRIAN Martinez DPOA/Assigned Designee Name Cosmo (son) ph# [phone] Advance Directives? Yes Advance Directives on File No History Provided By Patient Family Member Has Patient been admitted in last 30 No days? Prior Living Arrangements House Household Members none Independent with ADL's Yes Is patient alert and oriented? Yes Caregiver for Another No Patient/Family Preference Half-Way Facility Barriers to Discharge Yes Comment Lives alone. Discharge Plan Half-Way Facility Transportation Arrangement Family Referrals Initiated Half-Way Additional Comment Faxed SNF request to Attn: Liss at [place]. Second option is home with HH. [facility] first agency choice. If patient plan is home with home health Yes : Has signed face to face form been completed? If patient plan is SNF: Has PASSR been No completed? Medicare Choice List Provided Yes SNF/HH Preference [facility] Whiteboard Updated in Patient Room with Yes name and ext. # of Broach Trouble Shooter Comment Reviewed chart. Patient is a 77yr old female admitted to [facility] for left TSA performed on 01-17-18. Primary payor is [facility]. Admitting surgeon/ Dr. Bellamy. Met with patient explained CM/ SW role. Patient's son/Cosmo in at bedside. Patient seen by PT/OT today and SNF recommended. Patient resides alone in [place]. Son and patient aware and agreeable to short SNF stay if approved by [place]. TENTER provided patient with contracted SNF list. First choice is [facility]. TENTER to check in AM if they have contract with [place]. In the meantime faxed clinical to attn: Liss at [place]. Both patient and son aware that there is high chance that [place] will deny SNF stay. Second option is home with HH for RN/PT/OT/BILLET RECORDER. Home health agency choice is [facility]. Review Status In Process Please Provide Date Initial DC 01/18/18 Assessment Was Performed Next Review Type Continued Stay Review Pre-Anesthesia Assessment Start: 01/02/18 09:42 Freq: Status: Complete Protocol: Document 01/03/18 10:33 CAB (Rec: 01/02/18 10:01 VLJ [id number]) Pre-Anesthesia Assessment Patient Also Known As Cotton (AKA) Patient Information Reviewed Via Chart Review Phone Assessment Assessment Completed With Patient Lab Results BMP/CMP CBC EKG Comment EKG reviewed w/Dr. Aguilar, no change from EKG 12/25/08 Primary Care Provider Elizabeth Schulte Seen Specialist in Last 12 Months Yes Specialist Seen Orthopedist Primary Language Lao Butcher Fish Required No Height 162.56 cm Weight 87.543 kg Body Mass Index (BMI) 33.1 Hearing Ability Normal Visual Assist Glasses Dentition Type Teeth, Natural Present Teeth, Missing Partial- Upper Barriers to Learning None Other Aids No Comment 6 teeth on bottom per pt Hx Anesthesia Reactions No Hx Family Anesthesia Reaction No Hx Malignant Hyperthermia No Hx Blood Transfusions Yes: w/ Hx Blood Transfusion Reaction No Anesthesia Review Requested No Online Banking Specialist No alcohol intake never Smoking Status Never smoker Substance Use Type does not use Pain Present Pain Reported Musculoskeletal Symptoms Abnormal Gait Arthralgias Back Pain Difficulty Walking Limited Range of Motion Muscle Cramps Muscle Weakness Numbness History of Falling (Recent or History of Yes ) Patient is completely paralyzed or No completely immobile Prosthesis or Orthotic Device Cane Front Wheel Walker Comment Recent GLF onto a rolled carpet, extensive bruising under breasts Is patient on oxygen? No Does patient have WOODY/SOB No: r/t Asthma Hx Sleep Apnea Yes: Sleep study 03/06/16 Comment Pt states she was never advised if she needed CPAP or not Currently Taking a Beta Magdi No Can You Climb a Flight of Stairs Without No SOB Hx Chest Pain No Hx SOB Yes: Occasional r/t Asthma Hx Syncope or Dizziness Yes: A little dizziness sometimes Anti-Coagulant Therapy No Has a Supervisor Agency Appointments Yes Cardiac Testing Yes: ECHO02/02/17, ZIO patch 01/29/17 Hx Pacemaker/ICD No Pacemaker Rep Required? No Cardiac Clearance Received Not Applicable Comment ECHO ZIO patch to med records to be scanned to chart Diet Type At Home Regular dysphagia No Urinary Catheter Present No Hx Urinary Self Catheterization No Diabetes No Patient No Lactating No Hx Drug Resistant Organism No Presence of External or Internal Medical No Devices Have you traveled outside the [place] in the last 30 days? Marital Status Lives With none Prior Living Arrangements House Number of Floors (Floors) 3 or More Floors Support System Child/Children Does the Patient Have Assistance After Very limited support from Surgery children, 2 1/2 years Patient Discharge Plan Description Return Home Feels Safe in Current Environment Yes Been Physically Hurt or Threatened By a No Person in Current Environment Do you have thoughts of harming yourself None or others? Are you currently considering suicide? No Do you have a plan to hurt yourself or No Plan others? Do You Have Any Spiritual Beliefs That No May Affect Your HC Choices? Do You Have Any Cultural Practices That No May Affect Your HC Choices? Who Can We Speak to About Patient's Care Family, Friends Identifying Code for Release of Patient Declines to issue Information Health Care Proxy/Next of Kin Cosmo (son) Health Care Proxy Phone Number Pt to update dos Advance Directives? Yes Advance Directives on File No Requested Patient Bring Advanced Yes Directives DOS PAC Instructions Durable medical equipment Medications to take/avoid Nasal antibiotic No ETOH/petroleum product on skin DOS NPO Pre-surgical wash Sturdy shoes/comfortable clothes Do not bring valuables and remove jewelry
--- NOTE | 2018-01-18 16:00 | PC.NURSE ---
Day Shift- Hemovac removed at 1540 without difficulty. Sterile gauze and tegaderm placed over site. Bulky dressing removed to left shoulder incision, steri-strips intact. Aquacel AG dressing applied, pt tolerated well.
--- NOTE | 2018-01-18 16:07 | PT.IPTN ---
Addendum entered and electronically signed by Maria Del Carmen Balderas, PT 01/18/18 16:08: I directly supervised and guided this session. Jose Balderas, DPT Original Note: Current Diagnoses Primary osteoarthritis, left shoulder (01/17/18) Surgery Performed Operation Date: 01/17/18 07:45 Actual Procedures p Total Shoulder Arthroplasty(Left) - Anderson Bellamy MD Physical Therapy Treatment Note M2 PT-IP Current Condition Start: 01/17/18 13:18 Freq: NEEDED Status: Active Protocol: Document 01/17/18 14:45 (Rec: 01/17/18 14:45 [id number]) Physical Therapy Current Condition Current Condition Evaluation Date 01/17/18 Treatment Diagnosis L shoulder arthroplasty; History of falls Onset Date 01/17/18 Precautions Shoulder Precautions Sling PROM Internal Rotation to Body No External Rotation No Abduction Forward Flexion to 90 degrees Pendulums Weight Bearing Status Weight Bearing Status Non-Weight Bearing M3 PT-IP Subjective Start: 01/17/18 13:18 Freq: NEEDED Status: Active Protocol: Document 01/18/18 15:40 (Rec: 01/18/18 16:07 [id number]) Subjective Physical Therapy Visit Type Type Treatment Note Visit Start Time 15:40 Visit Stop Time 15:52 Total Visit Minutes 12 Notes Session ended early due to drain displacement. Nursing came into complete appropriate drain removal and wound care. Number of ASSOCIATE EDITOR Visits 0 Physical Therapy Visit Comments Patient Comments Pt continues to feel better and agreeable to perform stairs. She begins the session needing to toilet. Therapy Pain Assessment Pain When Pain Assessed During Mobility Pain Present Pain Present Pain Reported Location Left Shoulder Intensity 7 Scale Used Numeric (1 - 10) M4 PT-IP Mobility and Gait Start: 01/17/18 13:18 Freq: NEEDED Status: Active Protocol: Document 01/18/18 15:40 (Rec: 01/18/18 16:07 [id number]) PT-Bed Mobility Assessment Supine to Sit Supine to Sit Standby Assistance Sit to Supine Sit to Supine Standby Assistance PT-Transfer Assessment Sit to and From Stand Sit to and from Stand Standby Assistance Equipment Transfer Assistive Device Gait Belt Comments Mobility Comments When performing sit to stand she continues to need min cues reminding her not to use the cane as RUE assist for ascend/ descend. She is able to perform 5X sit <>stand with CGA and RLE assist in 18 s. Gait Assessment Gait Gait Assistance Required: Standby Assistance Able to Maintain Weight Bearing Status Yes During Gait Assistive Devices Assistive Device Gait Belt Tripod Cane/Hurry Cane Gait Deviations General Gait Pattern Decreased Stride Length Decreased Feet Clearance Narrow Based Gait Wide Based Gait Factors Limiting Gait Function Factors Limiting Gait Function Decreased Activity Tolerance Decreased Strength Difficulty Following Directions Incoordination Limited Range of Motion Pain Poor Balance Poor Safety Awareness Comments Gait Comments Pt ambulates from bedside to bathroom then to w/c using tripod cane and CGA for a total of 20 ft. She continues to need mod cues for proper coordination of cane with ambulation. Wide variability in step width and step length noted. PT-Balance Assessment Sitting Balance and Reactions Static Sitting Balance Ability Fair Dynamic Sitting Balance Ability Fair Standing Balance and Reactions Static Standing Balance Ability Fair Dynamic Standing Balance Ability Fair Functional Assessments Functional Tests 5 Times Sit to Stand 1 trial in 18s with use of RLE on arm rest of w/c. M5 PT-IP Objective Assessments Start: 01/17/18 13:18 Freq: NEEDED Status: Active Protocol: Document 01/17/18 13:29 (Rec: 01/17/18 14:38 [id number]) Orientation Orientation/Cognition Level of Alertness Alert Orientation Name Age Place Situation Language Function Ability No Deficits Noted Safety Awareness Decreased Safety Awareness Memory Description No Deficits Noted Gross Range of Motion Upper Extremity ROM Assessment Left Impaired Lower Extremity ROM Assessment Within Functional Limits Sensation Assessment Comments Sensation Comments LUE still completely numb post surgery per patient report. Pt states she lack sensation in B feet. M6 PT-IP Treatment Start: 01/17/18 13:18 Freq: NEEDED Status: Active Protocol: Document 01/17/18 13:29 (Rec: 01/17/18 14:38 [id number]) Physical Therapy Treatment Education Education Provided Safety M7 PT-IP Assessment and Plan Start: 01/17/18 13:18 Freq: NEEDED Status: Active Protocol: Document 01/18/18 15:40 (Rec: 01/18/18 16:07 [id number]) PT Summary Assessment and Plan Potential Rehabilitation Potential Good Status of Condition at Evaluation Stable Summary Impairments Pain ROM Strength Balance Coordination Bed Mobility Transfers Gait Activity Tolerance Progress Towards Goals Progressing Toward Goals Assessment Summary Pt continuing to demonstrate fall risk as evidenced by variable step width and step length. She continues to demonstrate poor coordination with tripod cane. Pt left with nursing as drain was displaced and they proceeded to care for the wound and drain. Continue with plan and recommendations per previous session. Frequency of Treatment Frequency Of Treatment Twice a Day Treatment Plan Other Recommendations and Next Treatment Continue gait and stair Focus training (recommend CGA on stairs). Include some dynamic balance activities.
--- NOTE | 2018-01-18 18:27 | PC.NURSE ---
Addendum entered by Mary Lake R.N. 01/18/18 21:17: Uneventful evening. Med w/ routine tylenol w/good relief. CMS ++. Dsg CDI Satisfactory post op course. Possible discharge in am. Call light w/in reach, bed alarm on for pt safety. Continue w/plan of care. Original Note: Pt resting quietly at this time. Denies discomfort. Left shoulder dsg changed to aquacell Hemavac D/C'd CMs ++ Call light w/in reach. Stable post op course.
[2018-01-18] MEDS: TRAZODONE 100 MG TABLET PO (20:07)
[2018-01-18] MEDS: DULOXETINE 30 MG CAPSULE 60 MG PO (20:08)
[2018-01-19] VITALS (10 sets, daily range): BP systolic 118–139; BP diastolic 51–67; PULSE 72–78; RESP 15–18; TEMP 36.5–36.9; O2SAT 90–96
[2018-01-19] MEDS: LEVOTHYROXINE 112 MCG TABLET PO (07:01)
[2018-01-19] MEDS: SODIUM CHLORIDE 0.9% FLUSH 10 ML IV ×2 (08:44→20:10)
[2018-01-19] MEDS: OXYCODONE IR 5 MG TABLET PO ×3 (08:44→20:05)
--- NOTE | 2018-01-19 10:12 | OT.IP.TRT ---
Current Diagnoses Primary osteoarthritis, left shoulder (01/17/18) Surgery Performed Operation Date: 01/17/18 07:45 Actual Procedures p Total Shoulder Arthroplasty(Left) - Anderson Bellamy MD Occupational Therapy Treatment Note M2 OT-IP Current Condition Start: 01/18/18 13:24 Freq: Status: Active Protocol: Document 01/18/18 13:24 PJM (Rec: 01/18/18 13:59 PJM [id number]) Occupational Therapy Current Condition Current Condition Evaluation Date 01/18/18 Treatment Diagnosis decreased self care and functional mobility S/P L TSA Diagnosis Onset Date 01/17/18 Post Operative Precautions Shoulder Precautions Sling PROM Internal Rotation to Body No External Rotation No Abduction Forward Flexion to 90 degrees Pendulums Other Precautions sling on at all times except when dressing and showering; began education with pt,son re : donning and doffing sling and pendulum exercises for LUE Weight Bearing Status Weight Bearing Status Non-Weight Bearing Allowed Weight Bearing Amount (enter % NWB LUE or #) (%) M3 OT- IP Subjective and Pain Start: 01/18/18 13:24 Freq: Status: Active Protocol: Document 01/19/18 10:12 PJM (Rec: 01/19/18 17:04 [facility] [id number]) OT- Subjective Occupational Therapy Visit Type Type Treatment Note Visit Start Time 08:55 Visit Stop Time 10:12 Total Visit Minutes 77 Notes Pt awake in bed when therapist arrived; agreeable to tx. Occupational Therapy Visit Comments Patient Comments I think I will sleep in my recliner at home, but my son moved my bed to main floor last night. Patient/Caregiver Goals to go home OT Pain Assessment Pain When Pain Assessed After Treatment Pain Present Pain Present Pain Reported Location Left Shoulder Intensity 6 Description Aching Acute Pain Behaviors Facial Grimacing Guarding Wincing Management Techniques Apply Cold Distraction Re-positioning Timing of Activity with Medications M4 OT- IP ADL's Start: 01/18/18 13:24 Freq: Status: Active Protocol: Document 01/19/18 10:12 PJM (Rec: 01/19/18 17:04 [facility] [id number]) OT [id number] General Evaluation Self-Feeding Ability Independent Comments OT Self-Feeding Comments pt needs set up to open containers and cut food due to unilateral function OT ADL-Grooming General Evaluation Grooming Ability Standby Assistance Areas Needing Assistance Retrieving/Set-up of Grooming Items Combing/Brushing Hair Face Washing Comments OT Grooming Comments standing at sink OT ADL-Oral Care Comments Oral Care Comments pt declined this session OT ADL-Dressing General Eval Upper Body Dressing Ability Maximum Assistance Lower Body Dressing Ability Moderate Assistance Areas Needing Assistance Retrieving/Set-up of Clothing Managing Buttons Button-Up Shirt/Blouse Underpants/Brief Pants/Shorts Socks Comments OT Dressing Comments Pt continues to need max assist to don/doff sling and don front button sweater. Pt needs min assist to get pants over feet and min assist to pull up over L hip after toileting. Pt needs total assist with socks. States she usually goes barefoot at home. She will wear slip on shoes OT ADL-Toileting General Evaluation Toileting Ability Standby Assistance Areas Needing Assistance Manage Clothing Perform Perineal Hygiene Devices Toileting Assistive Devices Raised Toilet Seat OT ADL-Bathing Bathing Type Bathing Type Sponge Bath General Evaluation Bathing Ability Moderate Assistance Areas Needing Assistance Wash/Dry Upper Body Wash/Dry Back Comments OT Bathing Comments Pt needs assist and verbal cues for technique to wash/dry under L arm and to wash/dry R arm M5 OT- IP IADL's Start: 01/18/18 13:24 Freq: Status: Active Protocol: Document 01/18/18 13:24 PJ (Rec: 01/18/18 13:59 [facility] [id number]) OT-Instrumental Activities of Daily Living Deficits IADL Deficits Identified Deficits Home Safety Awareness Awareness of Need for Assistance at Home Good Awareness Ability to Problem Solve Emergency Able to Problem Solve Situations Medication Management Medication Management No Deficits Identified Money Management Money Management No Deficits Identified Meal Preparation Meal Preparation Caregiver Provides Assist Meal Preparation Comments pt will have paid caregiver to assist with some meal set up; pt plans to microwave meals; family will assist with grocery shopping PRN Psychotherapist Social Worker Psychotherapist Social Worker Caregiver Provides Assist Psychotherapist Social Worker Comments family will assist with cleaning, laundry; neighbors to assist with mail and trash Driving Driving Caregiver Provides Assist Driving Comments pt plans to hire taxi or use caregiver for transport M6 OT- IP Functional Cognition Start: 01/18/18 13:24 Freq: Status: Active Protocol: Document 01/19/18 10:12 [email or web address] (Rec: 01/19/18 17:04 [facility] [id number]) Cognitive Factors Limiting Selfcare Function Cognitive Ability Level of Alertness Alert Patient Orientation Name Age Birthday Month Date Year Day of Week Place Situation Attention Span Ability Capable of Focused Attention Capable of Sustained Attention Ability to Follow Commands Able to Follow One Step Commands Memory Description Short Term Impaired Safety Awareness Decreased Recall of Precautions Decreased Ability to Apply Precautions Underestimates Need for Assistance Problem Solving Ability Needs Assist to Identify Solutions Cognitive Comments Cognitive Assessment Comments Pt needs min cues to recall sling donning/doffing techniques from yesterday. Needs min to mod verbal cues to problem solve adapted ADLs. Decreased insight into current level of assist needed . M7 OT- IP Mobility and Balance Start: 01/18/18 13:24 Freq: Status: Active Protocol: Document 01/19/18 10:12 PJM (Rec: 01/19/18 17:04 [facility] [id number]) OT- Bed Mobility Assessment Rolling Type of Rolling Roll to Right Level of Assistance Standby Assistance Head of Bed Elevated Supine to Sit Supine to Sit Assist Standby Assistance Head of Bed Elevated Scooting Scooting to Edge of Bed Independent OT-Transfer Assessment Sit to and From Stand Sit to and from Stand Contact Guard Assistance Transfers Transfer Ability Contact Guard Assistance 1 Person Assistance Technique Transfer Destination Chair Toilet Transfer Technique Stand Step Pivot Devices Transfer Assistive Devices Straight Cane Comments Mobility Comments Pt unsteady on turns with straight cane and unable to identify correct gait sequence with it. Son arrived later in session and reports pt has been falling at least 1x week at home as knee aramis. Neighbors have been assisted pt up from floor as she cannot get up independently. Pt has been refusing [facility] and unable to learn to use cell phone watch. OT- Gait Assessment Gait Gait Assistance Required: Contact Guard Assist Distance (Feet) 25 Assistive Devices Assistive Device Gait Belt Straight Cane Comments Gait Ability Comments Pt unsteady on turns; forgets cane when turning away from sink. High fall risk. OT- Balance Assessment Sitting Balance and Reactions Static Sitting Balance Ability Good Dynamic Sitting Balance Ability Good Standing Balance and Reactions Static Standing Balance Ability Fair Dynamic Standing Balance Ability Fair M8 OT- IP Objective Assessments Start: 01/18/18 13:24 Freq: Status: Active Protocol: Document 01/19/18 10:12 PJM (Rec: 01/19/18 17:04 [facility] [id number]) OT Gross Range of Motion Upper Extremity Range of Motion Assessment Left Impaired ROM Impairments LUE: pt tolerating about 30 degrees passive forward flex during pendulums, distal AROM WFL at elbow but painful per pt. Active supination to about 30 degrees today, pronation WFL. Pt has 45 degrees active wrist flex/ext and finger flex /ext WFL. OT- Coordination Assessment Comments Coordination Comments Pt using L hand within sling with mod verbal cues for light stabilization tasks OT Sensation Assessment Edema Edema Present Edema Comments min edema gradually decreasing in L hand M9 OT- IP Assessment and Plan Start: 01/18/18 13:24 Freq: Status: Active Protocol: Document 01/19/18 10:12 PJM (Rec: 01/19/18 17:04 PJM [id number]) OT Summary Assessment and Plan Potential Rehabilitation Potential Good Summary OT Impairments Pain Range of Motion Strength Balance Progress Towards Goals Slow Progress due to Pain Slow Progress due to Activity Tolerance Assessment Summary Pt making slow progress with self care due to body size and inability to reach across her body as needed for upper body dressing. Pt will need caregiver assist with donning and doffing sling, front button shirt at home. She will also need assist with showering, meal prep and all otehr IADLS. SHe performs all tasks slowly due to pain. Pt unsteady on her feet with straight cane and has hx of weekly falls at home per son. Pt currently needs 24 hr assist for safety for self are and functional mobility and remains a high fall risk. Son aware. Strongly recommend SNF at d/c for further subacute rehab services. If pt d/c's home, recommend 24 hr assist, HH OT/PT/bath aide. Son looking into [facility] caregiver services. Pt would benefit from use of [facility] shelter. Goals Self-Feeding Goal Independent Grooming Goal Independent Dressing Goal Minimal Assistance Toileting Goal Independent Bathing Goal Minimal Assistance Toilet Transfer Goal Independent Raised Toilet Seat With Rails Shower Transfer Goal Contact Guard Assistance Shower Chair Grab Bars Patient/Caregiver Education Goal Demonstrate Post-Op Precautions Demonstrate Energy Conservation and Pacing Caregiver Independent Assisting Patient OT-Other Goals Grooming to be done standing at sink. Pt to complete LUE pendulum exercises with SBA from written directions. Days to Meet Goals 5 Frequency of Treatment Frequency Of Treatment Once a Day Treatment Plan OT Treatment Plan ADL Training Functional Mobility Therapeutic Exercises Patient/Family Education Discharge Planning Discharge Recommendations OT Discharge Recommendations SNF Rehab Other Discharge Recommendations vs home with / caregiver assist and HH OT, PT, bath aide Home Equipment Needs grab bars in shower, shower seat
[2018-01-19] MEDS: ACETAMINOPHEN 325 MG TABLET 975 MG PO ×3 (10:16→20:07)
[2018-01-19] MEDS: POLYETHYLENE GLYCOL 3350 17 GM POWD.PACK PO (10:16)
[2018-01-19] MEDS: PANTOPRAZOLE 20 MG TABLET PO (10:17)
[2018-01-19] MEDS: buPROPion XL 150 MG TAB 300 MG PO (10:17)
[2018-01-19] MEDS: ASPIRIN EC 81 MG TABLET PO ×2 (10:18→20:05)
[2018-01-19] MEDS: DOCUSATE 100 MG CAPSULE PO ×2 (10:18→20:05)
--- NOTE | 2018-01-19 10:19 | PM.PNPO.1 ---
Subjective Date Patient Seen: 01/19/18 Time Patient Seen: 10:19 Interval history: Post op day 2 status post Left total shoulder replacement by Dr. Pruitt. Patient is sitting bedside in chair comfortably without any signs of distress. Occupational therapist is in room. Patient reports her pain is manageable at this time. She reports that she lives alone and would like to have assistance at home upon discharge to help with her daily activities. She started PT yesterday. She reports that should would like to stay another day in the hospital to work on left UE movements. OT reports that patient has very limited movement on the L UE and recommends SNF. Patient is open to going to SNF upon discharge. Patient denies any chest pain, SOB, fever, vomiting, chills or nausea. Exam Vital Signs (past 8 hours): - 01/19/18 05:29 01/19/18 06:16 01/19/18 07:30 Temperature 98.0 F 98.4 F Pulse Rate 74 73 Respiratory Rate 18 16 Blood Pressure 138/67 139/56 L Pulse Oximetry 90 L 95 94 01/19/18 08:00 01/19/18 09:13 Temperature Pulse Rate Respiratory Rate Blood Pressure Pulse Oximetry 94 95 Fraction of Inspired Oxygen 21 Oxygen Delivery Method Room Air Oxygen Flow Rate 0 Narrative Exam Narrative: Patient is AOx3. She is a pleasant lady in no acute distress. L UE in sling. Radial pulses 2+ and symmetric. Sensation to light touch intact in UE bilaterally. Adequate strength with renewals specialist noted in UE bilaterally. Patient has full ROM in the L UE wrist, otherwise she has limited ROM in the L UE. Shoulder dressing CDI. Calfs are soft, non tender and compressible bilaterally. Objective Labs Result Diagrams: 01/18/18 05:37 Assessment & Plan Post-op Postoperative Procedures Operation Date: 01/17/18 07:45 Actual Procedures Side Surgeon p Total Shoulder Arthroplasty Left Anderson Bellamy MD Postoperative day: 2 Postoperative plan: routine post-op care Postoperative plan narrative: Continue pain management. Continue PT. Likely to be discharged to SNF tomorrow. Time Spent With Patient less than 15 minutes Quality VTE Deep Vein Thrombosis/Pulmonary Embolism Present on Admission: No
--- NOTE | 2018-01-19 11:45 | PT.IPTN ---
Current Diagnoses Primary osteoarthritis, left shoulder (01/17/18) Surgery Performed Operation Date: 01/17/18 07:45 Actual Procedures p Total Shoulder Arthroplasty(Left) - Anderson Bellamy MD Physical Therapy Treatment Note M2 PT-IP Current Condition Start: 01/17/18 13:18 Freq: NEEDED Status: Active Protocol: Document 01/17/18 14:45 (Rec: 01/17/18 14:45 [email or web address]) Physical Therapy Current Condition Current Condition Evaluation Date 01/17/18 Treatment Diagnosis L shoulder arthroplasty; History of falls Onset Date 01/17/18 Precautions Shoulder Precautions Sling PROM Internal Rotation to Body No External Rotation No Abduction Forward Flexion to 90 degrees Pendulums Weight Bearing Status Weight Bearing Status Non-Weight Bearing M3 PT-IP Subjective Start: 01/17/18 13:18 Freq: NEEDED Status: Active Protocol: Document 01/19/18 11:45 SA (Rec: 01/19/18 12:41 SA [email or web address]) Subjective Physical Therapy Visit Type Type Treatment Note Visit Start Time 11:45 Visit Stop Time 12:05 Total Visit Minutes 20 Notes Session focused on gait and stair training. As per OT, cecil's son reports pt has frequent falls about 1x/week. Number of MARKING DEVICES ASSEMBLER Visits 1 Physical Therapy Visit Comments Patient Comments Pt doing well, with limited pain at 2/10 during mobility tasks. M4 PT-IP Mobility and Gait Start: 01/17/18 13:18 Freq: NEEDED Status: Active Protocol: Document 01/19/18 11:45 SA (Rec: 01/19/18 12:41 SA [email or web address]) PT-Bed Mobility Assessment Supine to Sit Supine to Sit Standby Assistance Sit to Supine Sit to Supine Standby Assistance Scooting Scooting to Edge of Bed Standby Assistance Scooting Up and Down in Bed Standby Assistance PT-Transfer Assessment Sit to and From Stand Sit to and from Stand Standby Assistance Equipment Transfer Assistive Device Gait Belt Tripod Cane/Hurry Cane Transfers Transfer Destination Bed Chair Transfer Technique Stand Step Pivot Transfer Ability Level of Assist Standby Assistance Comments Mobility Comments No LOB with ambualtion but pt demonstrates poor insight into fatigue levels, evidenced by SOB. Gait Assessment Gait Gait Assistance Required: Standby Assistance Distance (Feet) 300 Able to Maintain Weight Bearing Status Yes During Gait Assistive Devices Assistive Device Gait Belt Tripod Cane/Hurry Cane Gait Deviations General Gait Pattern Decreased Feet Clearance Wide Based Gait Factors Limiting Gait Function Factors Limiting Gait Function Decreased Activity Tolerance Decreased Strength Limited Range of Motion Poor Safety Awareness Comments Gait Comments Pt needs cues for standing rest breaks and pacing with ambulation. 02 sats 94-97% Stair Climbing Assessment Evaluation Level of Assist On Stairs Contact Guard Assistance Devices Stair Climbing Assistive Devices Tripod Cane/Hurry Cane Technique/Endurance Stair Climbing Direction Ascend and Descend Stair Climbing Technique Step to Step Number of Steps Climbed 3 Query Text: Stair Climbing Set # Repetitions (reps) 2 Comments Stair Climbing Comments She descends backwards safely, with use of R HR. M5 PT-IP Objective Assessments Start: 01/17/18 13:18 Freq: NEEDED Status: Active Protocol: Document 01/17/18 13:29 (Rec: 01/17/18 14:38 [email or web address]) Orientation Orientation/Cognition Level of Alertness Alert Orientation Name Age Place Situation Language Function Ability No Deficits Noted Safety Awareness Decreased Safety Awareness Memory Description No Deficits Noted Gross Range of Motion Upper Extremity ROM Assessment Left Impaired Lower Extremity ROM Assessment Within Functional Limits Sensation Assessment Comments Sensation Comments LUE still completely numb post surgery per patient report. Pt states she lack sensation in B feet. M6 PT-IP Treatment Start: 01/17/18 13:18 Freq: NEEDED Status: Active Protocol: Document 01/17/18 13:29 (Rec: 01/17/18 14:38 [email or web address]) Physical Therapy Treatment Education Education Provided Safety M7 PT-IP Assessment and Plan Start: 01/17/18 13:18 Freq: NEEDED Status: Active Protocol: Document 01/19/18 11:45 SA (Rec: 01/19/18 12:41 SA [email or web address]) PT Summary Assessment and Plan Potential Rehabilitation Potential Good Status of Condition at Evaluation Stable Summary Assessment Summary Initiate balance assessment to determine fall risk. Frequency of Treatment Frequency Of Treatment Twice a Day Treatment Plan Other Recommendations and Next Treatment Continue gait and stair Focus trainnig and do balance assessment. Recommendations To Nursing Amount of Assist Needed 1 Person Assist Discharge Recommendations PT Discharge Recommendations SNF Rehab Other Discharge Recommendations If the patient were to go home at d/c she would need 24/7 avaliable assist for safe guarding on stairs to enter home. HH also recommended for post-op care and to address impairments noted in gait coordination and balance.
--- NOTE | 2018-01-19 13:13 | CM.DPC ---
Referral faxed to [facility].
--- NOTE | 2018-01-19 13:37 | CM.DPC ---
DCP/continued: Reviewed notes. Patient anticipated to d/c tomorrow 01-20-18. Asked LUIS/Jackie to faxed updated notes to attn: Liss at [facility] for review. Still awaiting on whether or not they will approve SNF. Met with patient and son at bedside. Patient continues to be agreeable to short SNF stay if covered by [facility]. Patient and son aware that they most likely will deny because of this being an elective/orthopedic surgery. 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 CARTOGRAPHY SUPERVISOR left vm with Liss at [facility] at approximately 12:30pm requesting update. No return phone call as of 1:40pm. Spoke with therapy this AM. They are suggesting patient be given information for [facility] in the home. Patient and son appreciative of brochure given and patient agreeable to arrange. Family also inquiring with long-term insurance about [facility] for future care needs. Patient and son made aware that [facility] is not contracted SNF provider with [facility]. Second choice if SNF authorized is [facility]. CARTOGRAPHY SUPERVISOR called [facility], spoke with Trish she reports that they can accept if authorized. LUIS/Jackie faxed clinical. In addition, placed call to Kelly at [facility]. She can also accept referral for HH if SNF denied. Clinical sent to Kelly at [facility]. Orders and F2F not sent. P: Awaiting call back from [facility] re: SNF approval? First SNF choice is [facility] and they can accept. If SNF denied second option is HH through [facility]. Clinical faxed to [facility]. If SNF denied HH orders and completed F2F will need to be faxed to [facility]. F2F has been signed. BRIAN Martinez
--- NOTE | 2018-01-19 13:41 | PC.NURSE ---
Placed once pt went into bed, but minutes later PT requested them removed for activity
[2018-01-19] MEDS: TRAZODONE 100 MG TABLET PO (20:06)
[2018-01-19] MEDS: DULOXETINE 30 MG CAPSULE 60 MG PO (20:07)
[2018-01-20] MEDS: OXYCODONE IR 5 MG TABLET PO ×4 (03:01→20:50)
[2018-01-20 03:15] VITALS: BP 127/51; PULSE 71; RESP 18; TEMP 36.8; O2SAT 94
[2018-01-20] MEDS: LEVOTHYROXINE 112 MCG TABLET PO (06:09)
--- NOTE | 2018-01-20 07:23 | PM.DS.1 ---
History of Present Illness Date Patient Seen: 01/20/18 Chief complaint: total shoulder arthroplasty L [id number] Narrative: Patient seen bedside s/p left total shoulder arthroplasty POD #3. Patient is doing well, but is awaiting authorization for discharge to a SNF. If she does not receive the authorization she will be discharged home with home PT. Her pain is relatively controlled and she denies CP, SOB, and N/V. Discharge Providers Date of admission: 01/17/18 06:13 Primary care physician: CELINA Anthony Consults: 01/17/18 11:07 Consult to Discharge Planning Routine Comment: Consult to Physical Therapy Evaluate & Treat Comment: Pendulums, PROM 90 FF, 0 ER, 0 Abd, IR to body Physician Instructions: Evaluate and Treat Consult to Respiratory Therapy Evaluate & Treat Comment: Physician Instructions: Evaluate and treat 01/17/18 18:40 Consult to Able Bodied Seaman Routine Comment: Family would like to talk. Pt lives by self w/stai 01/18/18 08:44 Consult to Occupational Therapy Evaluate & Treat Comment: Physician Instructions: Evaluate and treat 01/18/18 09:30 Consult to Occupational Therapy Evaluate & Treat Comment: Physician Instructions: Evaluate and treat Discharge provider: Shawna Toledo PA-C Discharge Date: 01/20/18 Summary Discharge Diagnosis: left glenohumeral joint osteoarthritis Hospital Course: Patient was admitted to the hospital s/p L. total shoulder arthroplasty with Dr. Bellamy on 01/17/18. She tolerated the procedure well with no major complications. She was transferred to the acute care floor where she was placed on the standard joint replacement pathway and protocol. She was seen by physical therapy who recommended that she be discharge to a SNF. Patient was stable and ready for discharge on 01/20/18. Status at Discharge Cognitive/behavioral status at discharge: Alert & oriented x3 Functional status at discharge: independent ambulation Overall status at discharge: patient is progressing back to baseline Time Spent with Patient Less than 30 minutes Exam Vital Signs (past 8 hours): - 01/19/18 23:40 01/20/18 03:15 Temperature 97.8 F 98.3 F Pulse Rate 72 71 Respiratory Rate 18 18 Blood Pressure 118/55 L 127/51 L Pulse Oximetry 94 94 Fraction of Inspired Oxygen 21 Oxygen Delivery Method Room Air Oxygen Flow Rate 0 Objective Labs Result Diagrams: 01/18/18 05:37 Discharge Plan Discharge Plan Patient Disposition: SNF Transfer to: [facility] Discharge comment: Will continue with a left arm sling for comfort and stabilization of left arm. I certify the postop hospital care home care is medically necessary on a continuing basis for any conditions for which he/ she received care during this hospitalization.: Yes The receiving facility has agreed to accept transfer and provide medical treatment.: Yes Discharge Med Rec/Prescriptions Prescriptions: New aspirin 81 mg Tablet,Delayed Release (Dr/Ec) 81 mg PO BID Qty: 60 RF: 0 oxycodone 10 mg Tablet 10 mg PO Q3HR PRN (Reason: Pain, Severe (7-10)) Qty: 40 RF: 0 Continue acetaminophen 325 mg Tablet 325 mg PO TID PRN (Reason: pain) RF: 0 trazodone 100 mg Tablet 100 mg PO BEDTIME RF: 0 omeprazole 20 mg Capsule,Delayed Release(Dr/Ec) 20 mg PO DAILY RF: 0 albuterol sulfate 90 mcg/actuation Hfa Aerosol Inhaler 2 puff INHALATION Q4-6H PRN (Reason: Asthma) RF: 0 levothyroxine 112 mcg Tablet 112 mcg PO DAILY RF: 0 cholecalciferol (vitamin D3) 400 unit Capsule 1 dose PO DIRECTED RF: 0 bupropion HCl 300 mg Tablet Extended Release 24 Hr 300 mg PO DAILY RF: 0 duloxetine 60 mg Capsule,Delayed Release(Dr/Ec) 60 mg PO BEDTIME RF: 0 calcium carbonate-vitamin D3 600 mg(1,500mg) -400 unit Tablet 1 tab PO DAILY RF: 0 krill oil 500 mg Capsule 1 dose PO DIRECTED RF: 0 turmeric root extract 500 mg Capsule 500 mg PO DAILY RF: 0 Osteo Bi-Flex 1 dose PO DIRECTED RF: 0 cyanocobalamin (vitamin B-12) 1 dose PO DIRECTED RF: 0 Follow up/Referrals: Anderson Bellamy MD [Physician] - (Follow up with office at previously scheduled appointment in 2 weeks' time) Discharge Health Status Precautions: [place] Provider Discharge Instructions Diet: Diet as Tolerated Activity: No lifting or carrying with left arm. His left arm sling for comfort and stabilization of arm. Cold/Heat Therapy: Apply ice pack to left shoulder as needed 20 minutes at a time at least hourly while awake. Skin/Wound/Dressing Care Report to your healthcare provider any signs of infection, such as:: chills, fever, night sweats, increased pain and unusual drainage Special Rehabilitation Services Reason for rehabilitation: Post-operative therapy Rehab type: Physical therapy and Occupational therapy Visit Report/Discharge Packet Instructions: DI for Shoulder Replacement Visit Report Forms: Stroke Signs & Symptoms Discharge Data Primary Care Provider: Elizabeth Schulte Attending Provider: Anderson Bellamy Admit Date/Time: 01/17/18 06:13 Quality VTE Deep Vein Thrombosis/Pulmonary Embolism Present on Admission: No
[2018-01-20 07:55] VITALS: BP 134/65; PULSE 75; RESP 20; O2SAT 97
[2018-01-20] MEDS: ACETAMINOPHEN 325 MG TABLET 975 MG PO ×3 (09:16→20:48)
[2018-01-20] MEDS: ASPIRIN EC 81 MG TABLET PO ×2 (09:18→20:49)
[2018-01-20] MEDS: PANTOPRAZOLE 20 MG TABLET PO (09:19)
[2018-01-20] MEDS: DOCUSATE 100 MG CAPSULE PO (09:19)
[2018-01-20] MEDS: buPROPion XL 150 MG TAB 300 MG PO (09:19)
[2018-01-20] MEDS: POLYETHYLENE GLYCOL 3350 17 GM POWD.PACK PO (09:20)
[2018-01-20 09:30] VITALS: O2SAT 95
--- NOTE | 2018-01-20 10:27 | PT.IPTN ---
Current Diagnoses Primary osteoarthritis, left shoulder (01/17/18) Surgery Performed Operation Date: 01/17/18 07:45 Actual Procedures p Total Shoulder Arthroplasty(Left) - Anderson Bellamy MD Physical Therapy Treatment Note M2 PT-IP Current Condition Start: 01/17/18 13:18 Freq: NEEDED Status: Active Protocol: Document 01/17/18 14:45 (Rec: 01/17/18 14:45 [email or web address]) Physical Therapy Current Condition Current Condition Evaluation Date 01/17/18 Treatment Diagnosis L shoulder arthroplasty; History of falls Onset Date 01/17/18 Precautions Shoulder Precautions Sling PROM Internal Rotation to Body No External Rotation No Abduction Forward Flexion to 90 degrees Pendulums Weight Bearing Status Weight Bearing Status Non-Weight Bearing M3 PT-IP Subjective Start: 01/17/18 13:18 Freq: NEEDED Status: Active Protocol: Document 01/20/18 10:18 SA (Rec: 01/20/18 10:27 SA [email or web address]) Subjective Physical Therapy Visit Type Type Treatment Note Visit Start Time 09:30 Visit Stop Time 10:00 Total Visit Minutes 30 Number of EXECUTIVE TALENT ACQUISITION CONSULTANT Visits 2 Physical Therapy Visit Comments Patient Comments Pt had just received pain meds 10 min prior to session. Rated LUE pain as 4/10. Therapy Pain Assessment Pain When Pain Assessed During Mobility Pain Present Pain Present Pain Reported Location Left Shoulder Intensity 4 Scale Used Numeric (1 - 10) M4 PT-IP Mobility and Gait Start: 01/17/18 13:18 Freq: NEEDED Status: Active Protocol: Document 01/20/18 10:18 SA (Rec: 01/20/18 10:27 SA [email or web address]) PT-Bed Mobility Assessment Supine to Sit Supine to Sit Standby Assistance Sit to Supine Sit to Supine Standby Assistance Scooting Scooting to Edge of Bed Standby Assistance Scooting Up and Down in Bed Standby Assistance PT-Transfer Assessment Sit to and From Stand Sit to and from Stand Standby Assistance Equipment Transfer Assistive Device Gait Belt Large Based Quad Cane Transfers Transfer Destination Bed Chair Transfer Technique Stand Step Pivot Transfer Ability Level of Assist Standby Assistance Comments Mobility Comments Review/practice of safe sit to stand technique from lower surface to avoid shoulder discomfort. Gait Assessment Gait Gait Assistance Required: Standby Assistance Distance (Feet) 350 Able to Maintain Weight Bearing Status Yes During Gait Assistive Devices Assistive Device Gait Belt Large Based Quad Cane Gait Deviations General Gait Pattern Decreased Feet Clearance Wide Based Gait Factors Limiting Gait Function Factors Limiting Gait Function Decreased Activity Tolerance Decreased Strength Poor Balance Poor Safety Awareness Comments Gait Comments Continued cues for pacing, PLB and standing rest breaks with longer distance ambulation. Stair Climbing Assessment Evaluation Level of Assist On Stairs Standby Assistance Devices Stair Climbing Assistive Devices Right Railing Technique/Endurance Stair Climbing Direction Ascend and Descend Stair Climbing Technique Step to Step Stair Climbing Set # Repetitions (reps) 2 Comments Stair Climbing Comments Able to descend forward with RLE first and step to gait pattern. M5 PT-IP Objective Assessments Start: 01/17/18 13:18 Freq: NEEDED Status: Active Protocol: Document 01/17/18 13:29 (Rec: 01/17/18 14:38 [email or web address]) Orientation Orientation/Cognition Level of Alertness Alert Orientation Name Age Place Situation Language Function Ability No Deficits Noted Safety Awareness Decreased Safety Awareness Memory Description No Deficits Noted Gross Range of Motion Upper Extremity ROM Assessment Left Impaired Lower Extremity ROM Assessment Within Functional Limits Sensation Assessment Comments Sensation Comments LUE still completely numb post surgery per patient report. Pt states she lack sensation in B feet. M6 PT-IP Treatment Start: 01/17/18 13:18 Freq: NEEDED Status: Active Protocol: Document 01/20/18 10:18 SA (Rec: 01/20/18 10:27 SA [email or web address]) Physical Therapy Treatment Exercises Exercises Ankle Pumps Knee ROM Measurement Standing heel/toe raises and marching. M7 PT-IP Assessment and Plan Start: 01/17/18 13:18 Freq: NEEDED Status: Active Protocol: Document 01/20/18 10:18 SA (Rec: 01/20/18 10:27 SA [email or web address]) PT Summary Assessment and Plan Potential Rehabilitation Potential Good Status of Condition at Evaluation Stable Summary Assessment Summary Continued gait and stair trainng with education for pacing and safety. Frequency of Treatment Frequency Of Treatment Twice a Day Treatment Plan Other Recommendations and Next Treatment Continue with WBQC, safety and Focus gait training. Recommendations To Nursing Amount of Assist Needed 1 Person Assist Discharge Recommendations PT Discharge Recommendations SNF Rehab Other Discharge Recommendations If the patient were to go home at d/c she would need 24/7 avaliable assist for safe guarding on stairs to enter home. HH also recommended for post-op care and to address impairments noted in gait coordination and balance.
--- NOTE | 2018-01-20 11:30 | OT.IP.TRT ---
Current Diagnoses Primary osteoarthritis, left shoulder (01/17/18) Surgery Performed Operation Date: 01/17/18 07:45 Actual Procedures p Total Shoulder Arthroplasty(Left) - Anderson Bellamy MD Occupational Therapy Treatment Note M2 OT-IP Current Condition Start: 01/18/18 13:24 Freq: Status: Active Protocol: Document 01/18/18 13:24 PJM (Rec: 01/18/18 13:59 PJM [id number]) Occupational Therapy Current Condition Current Condition Evaluation Date 01/18/18 Treatment Diagnosis decreased self care and functional mobility S/P L TSA Diagnosis Onset Date 01/17/18 Post Operative Precautions Shoulder Precautions Sling PROM Internal Rotation to Body No External Rotation No Abduction Forward Flexion to 90 degrees Pendulums Other Precautions sling on at all times except when dressing and showering; began education with pt,son re : donning and doffing sling and pendulum exercises for LUE Weight Bearing Status Weight Bearing Status Non-Weight Bearing Allowed Weight Bearing Amount (enter % NWB LUE or #) (%) M3 OT- IP Subjective and Pain Start: 01/18/18 13:24 Freq: Status: Active Protocol: Document 01/20/18 11:14 [facility] (Rec: 01/20/18 11:30 [facility] [email or web address]) OT- Subjective Occupational Therapy Visit Type Type Initial Evaluation Visit Start Time 10:20 Visit Stop Time 11:05 Total Visit Minutes 45 Occupational Therapy Visit Comments Patient Comments Pt wanting to shower. OT Pain Assessment Pain When Pain Assessed At Rest Pain Present Pain Present Pain Reported Location Left Shoulder Intensity 5 Scale Used Numeric (1 - 10) Description Aching Acute Pain Behaviors Facial Grimacing Guarding Wincing Management Techniques Re-positioning Timing of Activity with Medications M4 OT- IP ADL's Start: 01/18/18 13:24 Freq: Status: Active Protocol: Document 01/20/18 11:14 [facility] (Rec: 01/20/18 11:30 [facility] [email or web address]) OT ADL-Dressing General Eval Upper Body Dressing Ability Maximum Assistance Lower Body Dressing Ability Maximum Assistance Areas Needing Assistance Retrieving/Set-up of Clothing Underpants/Brief Pants/Shorts Socks Comments OT Dressing Comments Pt still needing MAX A for sling management, pt has good understanding however due to pt's girth has difficulty to reach to her left side to manage sling. OT ADL-Toileting General Evaluation Toileting Ability Standby Assistance Areas Needing Assistance Manage Clothing Comments OT Toileting Comments Pt would benefit from toilet aid for completeness for hygiene needs. OT ADL-Bathing Bathing Type Bathing Type Shower General Evaluation Bathing Ability Maximal Assistance Areas Needing Assistance Wash/Dry Upper Body Wash/Dry Back Wash/Dry Lower Extremities Comments OT Bathing Comments Educated pt best to sit while showering so able to rest LUE on her lap while sitting in shower chair. Pt able to stand for pericare need and needing MAX A due to unable to wash RUE, back, and BLE/feet. Educated to get into shower first with sling on and the while sitting to doff sling. Pt will require assist if going home. M5 OT- IP IADL's Start: 01/18/18 13:24 Freq: Status: Active Protocol: Document 01/18/18 13:24 PJM (Rec: 01/18/18 13:59 PJM [id number]) OT-Instrumental Activities of Daily Living Deficits IADL Deficits Identified Deficits Home Safety Awareness Awareness of Need for Assistance at Home Good Awareness Ability to Problem Solve Emergency Able to Problem Solve Situations Medication Management Medication Management No Deficits Identified Money Management Money Management No Deficits Identified Meal Preparation Meal Preparation Caregiver Provides Assist Meal Preparation Comments pt will have paid caregiver to assist with some meal set up; pt plans to microwave meals; family will assist with grocery shopping PRN Retail Account Manager Retail Account Manager Caregiver Provides Assist Retail Account Manager Comments family will assist with cleaning, laundry; neighbors to assist with mail and trash Driving Driving Caregiver Provides Assist Driving Comments pt plans to hire taxi or use caregiver for transport M6 OT- IP Functional Cognition Start: 01/18/18 13:24 Freq: Status: Active Protocol: Document 01/20/18 11:14 [facility] (Rec: 01/20/18 11:30 [facility] [email or web address]) Cognitive Factors Limiting Selfcare Function Cognitive Ability Level of Alertness Alert Patient Orientation Name Age Birthday Month Date Year Day of Week Place Situation Attention Span Ability Capable of Focused Attention Capable of Sustained Attention Ability to Follow Commands Able to Follow Multi-Step Commands Memory Description Short Term Impaired Safety Awareness Underestimates Need for Assistance Problem Solving Ability Needs Assist to Identify Solutions Cognitive Comments Cognitive Assessment Comments Pt able to recall sling management better however physically unable to do for herself due to difficulty for her right arm to reach over to her left side. M7 OT- IP Mobility and Balance Start: 01/18/18 13:24 Freq: Status: Active Protocol: Document 01/20/18 11:14 [facility] (Rec: 01/20/18 11:30 [facility] [email or web address]) OT- Bed Mobility Assessment Rolling Type of Rolling Roll to Right Level of Assistance Standby Assistance Head of Bed Elevated Supine to Sit Supine to Sit Assist Standby Assistance Head of Bed Elevated OT-Transfer Assessment Sit to and From Stand Sit to and from Stand Standby Assistance Transfers Transfer Ability Standby Assistance Technique Transfer Destination Bed Toilet Transfer Technique Stand Step Pivot Devices Transfer Assistive Devices Tripod Cane/Hurry Cane Comments Mobility Comments Pt able to walk in the room with hurry cane and no loss of balance. Pt states son has already moved the bed downstairs. Pt states can sleep in the recliner on the main level as well. M8 OT- IP Objective Assessments Start: 01/18/18 13:24 Freq: Status: Active Protocol: Document 01/19/18 10:12 PJ (Rec: 01/19/18 17:04 PJM [id number]) OT Gross Range of Motion Upper Extremity Range of Motion Assessment Left Impaired ROM Impairments LUE: pt tolerating about 30 degrees passive forward flex during pendulums, distal AROM WFL at elbow but painful per pt. Active supination to about 30 degrees today, pronation WFL. Pt has 45 degrees active wrist flex/ext and finger flex /ext WFL. OT- Coordination Assessment Comments Coordination Comments Pt using L hand within sling with mod verbal cues for light stabilization tasks OT Sensation Assessment Edema Edema Present Edema Comments min edema gradually decreasing in L hand M9 OT- IP Assessment and Plan Start: 01/18/18 13:24 Freq: Status: Active Protocol: Document 01/20/18 11:14 [facility] (Rec: 01/20/18 11:30 [facility] [email or web address]) OT Summary Assessment and Plan Summary OT Impairments Pain Range of Motion Strength Balance Functional Cognition Functional Mobility Dressing Bathing Progress Towards Goals Slow Progress due to Pain Slow Progress due to Activity Tolerance Assessment Summary At this time skilled rehab would be beneficial to continue to educated on safety with sling, how to manage ADL 's and IADL's safely. If not able to go to skilled rehab pt would benefit from 02/11 assist as curently would be a high fall risk. Goals Days to Meet Goals 5 Frequency of Treatment Frequency Of Treatment Once a Day Treatment Plan OT Treatment Plan ADL Training Functional Mobility Therapeutic Exercises Patient/Family Education Discharge Planning Other Treatment Recommendations and Next Sling management , pendulum Treatment Focus exercises Discharge Recommendations OT Discharge Recommendations SNF Rehab Other Discharge Recommendations vs home with 02/11 caregiver assist and HH OT, PT, bath aide Home Equipment Needs grab bars in shower, shower seat
[2018-01-20 11:55] VITALS: BP 107/69; PULSE 75; RESP 16; TEMP 36.7; O2SAT 96
--- NOTE | 2018-01-20 14:35 | PC.NURSE ---
patient was expected to discharge to [facility] in the AM. Insurance denied request. Plan is to discharge home with home health tomorrow 01/21
--- NOTE | 2018-01-20 15:22 | CM.DPC ---
DCP Cont: Received call from [facility]/ Nicolas P# [phone]. Nicolas BRAR has denied this SNF auth request stating that pt does not meet the criteria for a skilled need in a SNF setting; she requires prison care. Reviewed this w/pt and her son Cosmo. Nicolas did also contact pt to update w/denial and review the appeal process. Pt is not interested in this today. This CARD PUNCHING MACHINE OPERATOR reviewed IMM, pt's rights under Medicare, and pt understood and signed. Reviewed DCP options to include private pay at SNF vs Home w/HH. Pt/son feel pt will be safe to DC home tomorrow w/HH and continue to prefer [facility] . Pt/son state the biggest concerns are: pt getting dressed, showered, and being able to get CPAP machine onn/off at night. Pt's adult children can assist w/errands and chores. Pt has meals prepared to microwave. We discussed above concerns at length and pt felt w/ assist from home health bath aid and her adult children, she could manage at home. Pt is planning on sleeping in a recliner for awhile once home, and she feels comfortable talking to OT for other suggestions re: managing ADLs once home. Continued this conversation w/pt's son Cosmo in the kerr, he explained he and his are (have been) trying to clean/organize pt's home because she hoards children's toys. They have cleared pathways, worked on fire safety and outlet safety, meanwhile trying to respect pt's request to not have anything thrown away. Son understands that throwing away items tend to feel like a violation to pt but Cosmo's first priority is keeping pt safe. Pt is agreeable to a lifeline and Cosmo is working on this. Cosmo was hopeful for SNF but pt/family were expecting that pt would DC home w. HH. Cosmo and spouse still attempting to clear pt's house for safety today/tonight and likely tomorrow. This CARD PUNCHING MACHINE OPERATOR faxed HH [facility] P: Home w/family via [facility] and [facility] , likely 24 hr f/u; will confirm Wednesday. BRIAN Andino
--- NOTE | 2018-01-20 15:52 | PT.IPTN ---
Current Diagnoses Primary osteoarthritis, left shoulder (01/17/18) Surgery Performed Operation Date: 01/17/18 07:45 Actual Procedures p Total Shoulder Arthroplasty(Left) - Anderson Bellamy MD Physical Therapy Treatment Note M2 PT-IP Current Condition Start: 01/17/18 13:18 Freq: NEEDED Status: Active Protocol: Document 01/17/18 14:45 (Rec: 01/17/18 14:45 [email or web address]) Physical Therapy Current Condition Current Condition Evaluation Date 01/17/18 Treatment Diagnosis L shoulder arthroplasty; History of falls Onset Date 01/17/18 Precautions Shoulder Precautions Sling PROM Internal Rotation to Body No External Rotation No Abduction Forward Flexion to 90 degrees Pendulums Weight Bearing Status Weight Bearing Status Non-Weight Bearing M3 PT-IP Subjective Start: 01/17/18 13:18 Freq: NEEDED Status: Active Protocol: Document 01/20/18 15:39 SA (Rec: 01/20/18 15:52 [facility] [email or web address]) Subjective Physical Therapy Visit Type Type Treatment Note Visit Start Time 15:10 Visit Stop Time 15:35 Total Visit Minutes 25 Notes Standing dynamic balance and safe gait and transfers with quad cane addressed. Number of GREEN PRIZE PACKER Visits 3 Physical Therapy Visit Comments Patient Comments Pt rated L shoulder pain as 3/ 10 with movement and 1/10 at rest. Therapy Pain Assessment Pain When Pain Assessed During Mobility Pain Present Pain Present Pain Reported Location Left Shoulder Intensity 3 Scale Used Numeric (1 - 10) M4 PT-IP Mobility and Gait Start: 01/17/18 13:18 Freq: NEEDED Status: Active Protocol: Document 01/20/18 15:39 SA (Rec: 01/20/18 15:52 [facility] [email or web address]) PT-Bed Mobility Assessment Supine to Sit Supine to Sit Standby Assistance Sit to Supine Sit to Supine Standby Assistance Scooting Scooting to Edge of Bed Standby Assistance Scooting Up and Down in Bed Standby Assistance PT-Transfer Assessment Sit to and From Stand Sit to and from Stand Standby Assistance Equipment Transfer Assistive Device Gait Belt Large Based Quad Cane Transfers Transfer Destination Bed Chair Transfer Technique Stand Step Pivot Transfer Ability Level of Assist Standby Assistance Comments Mobility Comments Bed mobility review with log roll technique for supine<>sit . Gait Assessment Gait Gait Assistance Required: Standby Assistance Distance (Feet) 350 Able to Maintain Weight Bearing Status Yes During Gait Assistive Devices Assistive Device Gait Belt Large Based Quad Cane Gait Deviations General Gait Pattern Decreased Stride Length Wide Based Gait Factors Limiting Gait Function Factors Limiting Gait Function Decreased Activity Tolerance Decreased Strength Poor Balance Poor Safety Awareness Comments Gait Comments Cues for safe use of quad cane with pateint becoming more comfortable with it. PT-Balance Assessment Comments Other Balance Tests/Deviations/Treatment Standing ballance challenges : with no AD and CGA: lateral and ant/posterior step outs, turns and SLS. LOB x 1 with self recovery. M5 PT-IP Objective Assessments Start: 01/17/18 13:18 Freq: NEEDED Status: Active Protocol: Document 01/17/18 13:29 (Rec: 01/17/18 14:38 [email or web address]) Orientation Orientation/Cognition Level of Alertness Alert Orientation Name Age Place Situation Language Function Ability No Deficits Noted Safety Awareness Decreased Safety Awareness Memory Description No Deficits Noted Gross Range of Motion Upper Extremity ROM Assessment Left Impaired Lower Extremity ROM Assessment Within Functional Limits Sensation Assessment Comments Sensation Comments LUE still completely numb post surgery per patient report. Pt states she lack sensation in B feet. M6 PT-IP Treatment Start: 01/17/18 13:18 Freq: NEEDED Status: Active Protocol: Document 01/20/18 15:39 SA (Rec: 01/20/18 15:52 SA [email or web address]) Physical Therapy Treatment Exercises Exercises Ankle Pumps Quad Sets Seated Knee Flexion/Extension M7 PT-IP Assessment and Plan Start: 01/17/18 13:18 Freq: NEEDED Status: Active Protocol: Document 01/20/18 15:39 SA (Rec: 01/20/18 15:52 SA [email or web address]) PT Summary Assessment and Plan Potential Rehabilitation Potential Good Status of Condition at Evaluation Stable Summary Assessment Summary Continue safety training with quad cane, gait, balance and functional mobility. Frequency of Treatment Frequency Of Treatment Twice a Day Treatment Plan Other Recommendations and Next Treatment Progress balance, gait and Focus stair training. Recommendations To Nursing Amount of Assist Needed 1 Person Assist
[2018-01-20 16:28] VITALS: BP 132/82; PULSE 72; RESP 15; TEMP 36.7; O2SAT 95
[2018-01-20 19:43] VITALS: BP 111/59; PULSE 72; RESP 18; TEMP 36.8; O2SAT 95
[2018-01-20] MEDS: TRAZODONE 100 MG TABLET PO (20:49)
[2018-01-20] MEDS: DULOXETINE 30 MG CAPSULE 60 MG PO (20:50)
[2018-01-21 00:14] VITALS: BP 117/51; PULSE 71; RESP 20; TEMP 36.5; O2SAT 96
[2018-01-21 04:27] VITALS: BP 112/53; PULSE 67; RESP 18; TEMP 36.4; O2SAT 94
[2018-01-21] MEDS: LEVOTHYROXINE 112 MCG TABLET PO (06:06)
[2018-01-21] MEDS: ACETAMINOPHEN 325 MG TABLET 975 MG PO (07:55)
[2018-01-21] MEDS: ASPIRIN EC 81 MG TABLET PO (07:55)
[2018-01-21] MEDS: PANTOPRAZOLE 20 MG TABLET PO (07:55)
[2018-01-21] MEDS: OXYCODONE IR 5 MG TABLET PO (07:56)
[2018-01-21] MEDS: buPROPion XL 150 MG TAB 300 MG PO (07:57)
[2018-01-21 08:30] VITALS: BP 127/92; PULSE 70; RESP 16; TEMP 36.6; O2SAT 97
--- NOTE | 2018-01-21 09:08 | PM.DS.1 ---
History of Present Illness Date Patient Seen: 01/21/18 Time Patient Seen: 09:09 Chief complaint: total shoulder arthroplasty L [id number] Narrative: The patient has had progressively worsening left shoulder pain with radiographic changes consistent with arthritis. Non-operative management has failed and the patient has requested total shoulder replacement. The risks, benefits and alternatives to surgery were discussed with the patient prior to proceeding. Risks discussed included, but were not limited to, failure to relieve pain, stiffness, infection, nerve damage, deep venous thrombosis, pulmonary embolism, stroke, coma, heart attack, permanent paralysis and , as well as the potential need for eventual revision of the prosthetic. Discharge Providers Date of admission: 01/17/18 06:13 Primary care physician: CELINA Anthony Consults: 01/17/18 11:07 Consult to Discharge Planning Routine Comment: Consult to Physical Therapy Evaluate & Treat Comment: Pendulums, PROM 90 FF, 0 ER, 0 Abd, IR to body Physician Instructions: Evaluate and Treat Consult to Respiratory Therapy Evaluate & Treat Comment: Physician Instructions: Evaluate and treat 01/17/18 18:40 Consult to Skill Training Program Coordinator Routine Comment: Family would like to talk. 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 Bellamy, and she consented to procedure. She was slow to recover after surgery and requiring home health services with [facility] for continued care. On postop day number 4 she is feeling well and ready to go home. She is mobilizing safely. She is eating and voiding without difficulty or assistance. Exam Vital Signs (past 8 hours): - 01/21/18 04:27 01/21/18 08:30 Temperature 97.5 F L 97.8 F Pulse Rate 67 70 Respiratory Rate 18 16 Blood Pressure 112/53 L 127/92 H Pulse Oximetry 94 97 Fraction of Inspired Oxygen 21 Oxygen Delivery Method Room Air Oxygen Flow Rate 0 Narrative Exam Narrative: Patient is sitting at bedside chair no acute distress. She is alert and oriented x3. Wearing sling. Dressing on left shoulder is CDI. Calves are soft, compressible, nontender bilaterally. Information Security Associate strength strong and equal. Sensation intact to light touch throughout bilateral upper extremities. Pulses are symmetrical. Pain is well controlled with oxycodone. Denies any chest pain or shortness of breath. Objective Labs Result Diagrams: 01/18/18 05:37 Discharge Plan Discharge Plan Patient Disposition: [facility] Transfer to: [facility] Discharge comment: Will continue with a left arm sling for comfort and stabilization of left arm. Discharge Med Rec/Prescriptions Prescriptions: New aspirin 81 mg Tablet,Delayed Release (Dr/Ec) 81 mg PO BID Qty: 60 RF: 0 oxycodone 10 mg Tablet 10 mg PO Q3HR PRN (Reason: Pain, Severe (7-10)) Qty: 40 RF: 0 Continue acetaminophen 325 mg Tablet 325 mg PO TID PRN (Reason: pain) RF: 0 trazodone 100 mg Tablet 100 mg PO BEDTIME RF: 0 omeprazole 20 mg Capsule,Delayed Release(Dr/Ec) 20 mg PO DAILY RF: 0 albuterol sulfate 90 mcg/actuation Hfa Aerosol Inhaler 2 puff INHALATION Q4-6H PRN (Reason: Asthma) RF: 0 levothyroxine 112 mcg Tablet 112 mcg PO DAILY RF: 0 cholecalciferol (vitamin D3) 400 unit Capsule 1 dose PO DIRECTED RF: 0 bupropion HCl 300 mg Tablet Extended Release 24 Hr 300 mg PO DAILY RF: 0 duloxetine 60 mg Capsule,Delayed Release(Dr/Ec) 60 mg PO BEDTIME RF: 0 calcium carbonate-vitamin D3 600 mg(1,500mg) -400 unit Tablet 1 tab PO DAILY RF: 0 krill oil 500 mg Capsule 1 dose PO DIRECTED RF: 0 turmeric root extract 500 mg Capsule 500 mg PO DAILY RF: 0 Osteo Bi-Flex 1 dose PO DIRECTED RF: 0 cyanocobalamin (vitamin B-12) 1 dose PO DIRECTED RF: 0 Follow up/Referrals: Anderson Bellamy MD [Physician] - (Follow up with office at previously scheduled appointment in 2 weeks' time) Provider Discharge Instructions Diet: Diet as Tolerated Activity: No lifting or carrying with left arm. Use left arm sling for comfort and stabilization of arm. Cold/Heat Therapy: Apply ice pack to left shoulder as needed 20 minutes at a time at least hourly while awake. Skin/Wound/Dressing Care Report to your healthcare provider any signs of infection, such as:: chills, fever, night sweats, increased pain and unusual drainage Dressing: leave in place until appointment Visit Report/Discharge Packet Instructions: DI for Shoulder Replacement Discharge Data Primary Care Provider: Elizabeth Schulte Attending Provider: Anderson Bellamy Admit Date/Time: 01/17/18 06:13 Quality VTE Deep Vein Thrombosis/Pulmonary Embolism Present on Admission: No
[2018-01-21 09:10] VITALS: PULSE 74; O2SAT 95
--- NOTE | 2018-01-21 09:48 | PT.IPTN ---
Current Diagnoses Primary osteoarthritis, left shoulder (01/17/18) Surgery Performed Operation Date: 01/17/18 07:45 Actual Procedures p Total Shoulder Arthroplasty(Left) - Anderson Bellamy MD Physical Therapy Treatment Note M2 PT-IP Current Condition Start: 01/17/18 13:18 Freq: NEEDED Status: Active Protocol: Document 01/17/18 14:45 (Rec: 01/17/18 14:45 [email or web address]) Physical Therapy Current Condition Current Condition Evaluation Date 01/17/18 Treatment Diagnosis L shoulder arthroplasty; History of falls Onset Date 01/17/18 Precautions Shoulder Precautions Sling PROM Internal Rotation to Body No External Rotation No Abduction Forward Flexion to 90 degrees Pendulums Weight Bearing Status Weight Bearing Status Non-Weight Bearing M3 PT-IP Subjective Start: 01/17/18 13:18 Freq: NEEDED Status: Active Protocol: Document 01/21/18 09:37 SA (Rec: 01/21/18 09:48 SA [id number]) Subjective Physical Therapy Visit Type Type Treatment Note Visit Start Time 08:40 Visit Stop Time 09:00 Total Visit Minutes 20 Notes Focused on safe gait with turns in tight spaces in room and stair training today. Physical Therapy Visit Comments Patient Comments Pt denied pain at rest today but increase to 2-3/10 with activity. Atreeable to PT. Therapy Pain Assessment Pain When Pain Assessed During Mobility Pain Present Pain Present Pain Reported Location Left Shoulder Intensity 2 Scale Used Numeric (1 - 10) M4 PT-IP Mobility and Gait Start: 01/17/18 13:18 Freq: NEEDED Status: Active Protocol: Document 01/21/18 09:37 SA (Rec: 01/21/18 09:48 [id number]) PT-Bed Mobility Assessment Supine to Sit Supine to Sit Standby Assistance Sit to Supine Sit to Supine Standby Assistance Scooting Scooting to Edge of Bed Standby Assistance Scooting Up and Down in Bed Standby Assistance PT-Transfer Assessment Sit to and From Stand Sit to and from Stand Standby Assistance Equipment Transfer Assistive Device Gait Belt Large Based Quad Cane Transfers Transfer Destination Bed Chair Transfer Technique Stand Step Pivot Transfer Ability Level of Assist Standby Assistance Comments Mobility Comments Improved sit to stand teqnique from low surface with no UE use, 8 reps. Gait Assessment Gait Gait Assistance Required: Standby Assistance Distance (Feet) 350 Able to Maintain Weight Bearing Status Yes During Gait Assistive Devices Assistive Device Gait Belt Large Based Quad Cane Gait Deviations General Gait Pattern Decreased Stride Length Wide Based Gait Factors Limiting Gait Function Factors Limiting Gait Function Decreased Activity Tolerance Decreased Strength Poor Balance Poor Safety Awareness Comments Gait Comments Sequencing wit quad cane cues but improved technique overall . Stair Climbing Assessment Evaluation Level of Assist On Stairs Standby Assistance Devices Stair Climbing Assistive Devices Right Railing Technique/Endurance Stair Climbing Direction Ascend and Descend Stair Climbing Technique Step to Step Number of Steps Climbed 3 Query Text: Stair Climbing Set # Repetitions (reps) 3 Comments Stair Climbing Comments Stp to gait pattern with SBA and use of R rail up, L rail down. M5 PT-IP Objective Assessments Start: 01/17/18 13:18 Freq: NEEDED Status: Active Protocol: Document 01/17/18 13:29 (Rec: 01/17/18 14:38 [email or web address]) Orientation Orientation/Cognition Level of Alertness Alert Orientation Name Age Place Situation Language Function Ability No Deficits Noted Safety Awareness Decreased Safety Awareness Memory Description No Deficits Noted Gross Range of Motion Upper Extremity ROM Assessment Left Impaired Lower Extremity ROM Assessment Within Functional Limits Sensation Assessment Comments Sensation Comments LUE still completely numb post surgery per patient report. Pt states she lack sensation in B feet. M6 PT-IP Treatment Start: 01/17/18 13:18 Freq: NEEDED Status: Active Protocol: Document 01/21/18 09:37 (Rec: 01/21/18 09:48 [id number]) Physical Therapy Treatment Exercises Exercises Ankle Pumps Quad Sets Seated Knee Flexion/Extension Education Education Provided Precautions Weight Bearing Status M7 PT-IP Assessment and Plan Start: 01/17/18 13:18 Freq: NEEDED Status: Active Protocol: Document 01/21/18 09:37 (Rec: 01/21/18 09:48 [id number]) PT Summary Assessment and Plan Potential Rehabilitation Potential Good Status of Condition at Evaluation Stable Summary Assessment Summary Pt to d/c with home health PT and family supervision, advised to avoid outdoor ambulation alone. Frequency of Treatment Frequency Of Treatment Twice a Day Treatment Plan Other Recommendations and Next Treatment Progress to safe IND gait with Focus use of quad cane. Recommendations To Nursing Amount of Assist Needed 1 Person Assist Discharge Recommendations PT Discharge Recommendations SNF Rehab Other Discharge Recommendations If the patient were to go home at d/c she would need / avaliable assist for safe guarding on stairs to enter home. HH also recommended for post-op care and to address impairments noted in gait coordination and balance.
--- NOTE | 2018-01-21 10:37 | OT.IP.TRT ---
Current Diagnoses Primary osteoarthritis, left shoulder (01/17/18) Surgery Performed Operation Date: 01/17/18 07:45 Actual Procedures p Total Shoulder Arthroplasty(Left) - Anderson Bellamy MD Occupational Therapy Treatment Note M2 OT-IP Current Condition Start: 01/18/18 13:24 Freq: Status: Active Protocol: Document 01/18/18 13:24 PJM (Rec: 01/18/18 13:59 PJM [id number]) Occupational Therapy Current Condition Current Condition Evaluation Date 01/18/18 Treatment Diagnosis decreased self care and functional mobility S/P L TSA Diagnosis Onset Date 01/17/18 Post Operative Precautions Shoulder Precautions Sling PROM Internal Rotation to Body No External Rotation No Abduction Forward Flexion to 90 degrees Pendulums Other Precautions sling on at all times except when dressing and showering; began education with pt,son re : donning and doffing sling and pendulum exercises for LUE Weight Bearing Status Weight Bearing Status Non-Weight Bearing Allowed Weight Bearing Amount (enter % NWB LUE or #) (%) M3 OT- IP Subjective and Pain Start: 01/18/18 13:24 Freq: Status: Active Protocol: Document 01/21/18 10:29 CCC (Rec: 01/21/18 10:36 [facility] [email or web address]) OT- Subjective Occupational Therapy Visit Type Type Treatment Note Visit Start Time 09:37 Visit Stop Time 10:12 Total Visit Minutes 35 Occupational Therapy Visit Comments Patient/Caregiver Goals To go home. OT Pain Assessment Pain When Pain Assessed At Rest Pain Present Pain Present Denied Pain M4 OT- IP ADL's Start: 01/18/18 13:24 Freq: Status: Active Protocol: Document 01/21/18 10:29 CCC (Rec: 01/21/18 10:36 [facility] [email or web address]) OT ADL-Dressing General Eval Upper Body Dressing Ability Moderate Assistance Lower Body Dressing Ability Maximum Assistance Areas Needing Assistance Retrieving/Set-up of Clothing Pull-Over Shirt Orthosis/Prosthesis Comments OT Dressing Comments Pt doing better today and needing MODA, mainly assist to andres sling over her elbow and assist for the straps. Pt's waist strap now fitting with just one. M5 OT- IP IADL's Start: 01/18/18 13:24 Freq: Status: Active Protocol: Document 01/18/18 13:24 PJM (Rec: 01/18/18 13:59 PJM [id number]) OT-Instrumental Activities of Daily Living Deficits IADL Deficits Identified Deficits Home Safety Awareness Awareness of Need for Assistance at Home Good Awareness Ability to Problem Solve Emergency Able to Problem Solve Situations Medication Management Medication Management No Deficits Identified Money Management Money Management No Deficits Identified Meal Preparation Meal Preparation Caregiver Provides Assist Meal Preparation Comments pt will have paid caregiver to assist with some meal set up; pt plans to microwave meals; family will assist with grocery shopping PRN Director Of Manufacturing Operations Director Of Manufacturing Operations Caregiver Provides Assist Director Of Manufacturing Operations Comments family will assist with cleaning, laundry; neighbors to assist with mail and trash Driving Driving Caregiver Provides Assist Driving Comments pt plans to hire taxi or use caregiver for transport M6 OT- IP Functional Cognition Start: 01/18/18 13:24 Freq: Status: Active Protocol: Document 01/21/18 10:29 [facility] (Rec: 01/21/18 10:36 [facility] [email or web address]) Cognitive Factors Limiting Selfcare Function Cognitive Ability Level of Alertness Alert Patient Orientation Name Age Birthday Month Date Year Day of Week Place Situation Attention Span Ability Capable of Focused Attention Capable of Sustained Attention Ability to Follow Commands Able to Follow Multi-Step Commands Safety Awareness Underestimates Need for Assistance Cognitive Comments Cognitive Assessment Comments Pt still has difficulty of not moving her shoulder during ADl needs. Pt having difficulty to follow pendulums at this time and tends to move her shoulder, therefore to have pt focus on dangling her arm instead. M7 OT- IP Mobility and Balance Start: 01/18/18 13:24 Freq: Status: Active Protocol: Document 01/21/18 10:29 [facility] (Rec: 01/21/18 10:36 [facility] [email or web address]) OT-Transfer Assessment Sit to and From Stand Sit to and from Stand Standby Assistance Transfers Transfer Ability Standby Assistance Technique Transfer Destination Chair Devices Transfer Assistive Devices Tripod Cane/Hurry Cane M8 OT- IP Objective Assessments Start: 01/18/18 13:24 Freq: Status: Active Protocol: Document 01/19/18 10:12 PJ (Rec: 01/19/18 17:04 PJ [id number]) OT Gross Range of Motion Upper Extremity Range of Motion Assessment Left Impaired ROM Impairments LUE: pt tolerating about 30 degrees passive forward flex during pendulums, distal AROM WFL at elbow but painful per pt. Active supination to about 30 degrees today, pronation WFL. Pt has 45 degrees active wrist flex/ext and finger flex /ext WFL. OT- Coordination Assessment Comments Coordination Comments Pt using L hand within sling with mod verbal cues for light stabilization tasks OT Sensation Assessment Edema Edema Present Edema Comments min edema gradually decreasing in L hand M9 OT- IP Assessment and Plan Start: 01/18/18 13:24 Freq: Status: Active Protocol: Document 01/21/18 10:29 [facility] (Rec: 01/21/18 10:36 [facility] [email or web address]) OT Summary Assessment and Plan Goals Days to Meet Goals 5 Frequency of Treatment Frequency Of Treatment Once a Day Treatment Plan Other Treatment Recommendations and Next Sling management , pendulum Treatment Focus exercises Discharge Recommendations OT Discharge Recommendations SNF Rehab Other Discharge Recommendations vs home with 02/11 caregiver assist and HH OT, PT, bath aide Home Equipment Needs grab bars in shower, shower seat
--- NOTE | 2018-01-21 10:58 | CM.DPC ---
Addendum entered by Jackie Crawford 01/21/18 10:59: Spoke to Kelly @[facility] Original Note: Referral faxed to [facility]
--- NOTE | 2018-01-21 15:57 | CM.DPC ---
DCP Cont: DC order in place today and pt and son Cosmo remain agreeable to DCP; Home w/[facility]. Son to transport home this afternoon after lunch. Pt explained to this ADMEASURER that son might be worried but she feels confident about her return home and has called [facility] [employer] to inquire about assist around her home and has researched medical insurance plans that might best suite her needs. Encouraged pt to continue to research the resources available to her, encouraged her to continue to follow up at the [facility] as well as stop by the [facility] when she is able. Pt very appreciative of this ADMEASURER's efforts and looking forward to going home today. P: DC Home w/family and [facility] PT/OT/RN/SUPERVISOR CHLORINE LIQUEFACTION w/in 24 hrs. BRIAN Adnino
--- NOTE | 2018-01-22 12:29 | CM.DPC ---
Faxed DC summary to [facility] per request. TANK
== END 2018-01-21 13:17 | disposition home health service (06) | DRG 483 ==
PROVIDERS: Admitting Provider Orthopaedic Surgery; PCP Nurse Practitioner; Visit Provider Orthopaedic Surgery
PROC: 0RRK0JZ Replacement of Left Shoulder Joint with Synthetic Substitute, Open Approach (ICD-10-PCS; CPT 23472; principal; 2018-01-17 07:45)
DX: M19.012 Primary osteoarthritis, left shoulder (principal); E07.9 Disorder of thyroid, unspecified; G47.33 Obstructive sleep apnea (adult) (pediatric); M79.7 Fibromyalgia; F32.9 Major depressive disorder, single episode, unspecified; K21.9 Gastro-esophageal reflux disease without esophagitis; M25.712 Osteophyte, left shoulder
CPT/HCPCS: 36415; 73020; 85027; 90471; 90656; 94760; 97110; 97116; 97161; 97165; 97530; 97535; C1776; J0330; J0690; J1170; J2250; J2405; J2704; J3010; Q2038